=== PATIENT | male | born 1945 | race Caucasian/White ===

== ENCOUNTER 2018-05-15 11:26 | Observation (INO) ==
[2018-05-15] MEDS ORDERED: ONDANSETRON INJ 2 MG/ML 2 ML VIAL IV STA (12:13)
[2018-05-15] MEDS ORDERED: HYDROmorphone INJ 1 MG/ML SYRINGE IV PRN (12:13)
[2018-05-15] MEDS ORDERED: SODIUM CHLORIDE 0.9% 500 ML IV STA (12:13)
[2018-05-15 12:34] LABS: Calcium 9.1 mg/dl (8.5-10.1); Creatinine Clr Calc Pharmacy 65.4 ml/min; Est GFR (African American) 80.5; Est GFR (Non-African American) 69.5; Hematocrit (blood only) 39.5 % (42-52); Immature Granulocytes # (auto) 0.07 K/uL (0.00-0.02); Immature Granulocytes % (auto) 0.7 %; Lymphocytes # (auto) 0.85 K/uL (1.2-3.4); Lymphocytes % (auto) 8.8 %; Mean Corpuscular Hgb Conc 32.9 g/dL (32-36); Mean Platelet Volume 10.8 fL (7.4-10.4); Monocytes % (auto) 12.4 %; Neutrophils # (auto) 7.55 K/uL (1.4-6.5); Neutrophils % (auto) 78.1 %; Platelet Count 219 K/uL (130-400); Potassium 3.2 mmol/L (3.5-5.1); RDW Coefficient of Variation 14.5 % (11.5-14.5); RDW Standard Deviation 45.9 fL (36.4-46.3); Red Blood Count 4.54 M/uL (4.7-6.1); White Blood Count 9.67 K/uL (4.8-10.8)
[2018-05-15] MEDS ORDERED: fentaNYL 50 MCG/HR TDSY TD SCH (14:00)
--- NOTE | 2018-05-15 14:04 | History & Physical Report ---
Date of Service May 15, 2018 Assessment & Plan (1) Uncontrolled pain: This is a 73yo M with a PMH of bladder cancer with mets to pelvis s/p ureteroileal conduit on Hospice who presents with uncontrolled R leg pain x 2 days. -Worsening R leg pain -Discussed pain regimen with palliative care * Will increase Fentanyl patch to 50 mcg * Continue oxycodone 5-10mg but increase frequency from Q4H to Q2H PRN * Family states that patient has already tried Roxanol in the past without alleviation of pain -Continue bowel regimen -Palliative care consulted. Appreciate further recommendations -Family interested in taking patient home once pain control is optimized (2) Bladder cancer: (3) Hospice care: With mets to pelvis. Recently completed palliative radiation therapy at [facility] on 04/28/18 -Receiving Hospice care. Continue Ativan PRN, Anthonyien HS Code status: DNR PCP: Latasha Dispo: Observation med/surg. Discharge planning ordered. Patient seen in collaboration with Dr. Winters. Please see addendum. History of Present Illness Chief Complaint: Uncontrolled pain Primary Care Provider: Hugh Pagan This is a 73yo M with a PMH of bladder cancer with mets to pelvis s/p ureteroileal conduit on Hospice who presents with uncontrolled R leg pain x 2 days. Recently completed palliative radiation therapy this month. Has worsening R buttocks pain that is now extending into right thigh and barnes. Had medication changes made by Hospice team earlier this week. Was started on Fentanyl patches x2 (12mcg each) earlier this week as well as being switched from oxycontin to oxycodone 5-10mg Q4 PRN. Denies any fever, chills, headache, cough, chest pain, shortness of breath, nausea, vomiting, abdominal pain or lower extremity swelling. Leg pain is exacerbated with any type of movement. Pain has improved with 1mg IV dilaudid in ED. Family is at bedside. Allergies Allergy/AdvReac Type Severity Reaction Status Date / Time Cipro Allergy Unknown tendonitis Unverified 07/09/15 13:36 ciprofloxacin Allergy Unknown tendonitis Verified 05/15/18 12:24 midazolam Allergy Unknown depression Verified 05/15/18 12:24 Home Medications Home Medications Medication Instructions Recorded Confirmed Type Gas And Bloat Prevention 1 tab PO DAILY PRN 05/15/18 05/15/18 History brimonidine-timolol [Combigan] 1 drp OPR BID 05/15/18 05/15/18 History fentanyl 1 patch TRANSDERMAL Q72H 05/15/18 05/15/18 History lorazepam [Ativan] 0.5 - 1 mg PO Q8 PRN 05/15/18 05/15/18 History oxycodone 5 - 10 mg PO Q4 PRN 05/15/18 05/15/18 History prednisolone acetate [Pred Forte] 1 drp OPR QPM 05/15/18 05/15/18 History sennosides-docusate sodium 1 tab PO DAILY 05/15/18 05/15/18 History [Senna-S] tramadol 50 - 100 mg PO Q6H PRN 05/15/18 05/15/18 History zolpidem [Ambien] 10 mg PO HS 05/15/18 05/15/18 History Past Med/Surg History Medical History Anxiety (Chronic) Chronic rhinitis (Chronic) GERD (gastroesophageal reflux disease) (Chronic) Hiatal hernia (Chronic) Tinnitus (Chronic) 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 Astigmatism of right eye due to surgery (Resolved) Surgical correction BPH (benign prostatic hyperplasia) (Resolved) Bladder neck contracture (Resolved) Surgery to relieve bladder neck contracture 02/08/14 Surgical History History of urostomy Hx of prostatectomy Hx of total cystectomy History of ileal conduit (Chronic) Radical cystoprostatectomy with ureteroileal conduit 03/12/16 H/O adenoidectomy (Resolved) H/O colonoscopy with polypectomy (Resolved) H/O cystoscopy (Resolved) H/O exploratory laparotomy (Resolved) H/O inguinal hernia repair (Resolved) Left H/O total cystectomy (Resolved) With ureteroileal conduit with bilateral pelvic lymphadenectomy 03/12/16 History of cataract surgery (Resolved) Right eye History of esophagogastroduodenoscopy (EGD) (Resolved) History of tonsillectomy (Resolved) Hx of transurethral destruction of bladder lesion (Resolved) 01/15/16 S/P TURP (Resolved) 09/13/11 Family History Other No significant family history Social History marital status: Current Living Situation: Spouse and Family 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 Other Information That Helps Us Care for You: No Feels Safe at Home: Yes Safety Concerns: Feels Safe At This Time Smoking Status: Never smoker Do You Dip or Chew Tobacco: No Second Hand Exposure: No Tobacco Cessation Education Requested by Patient: No Hx Alcohol Use: No Hx Substance Use: No Beliefs That Will Affect Care: None Preferred Language: Bahraini Communication Ability: Effective Sock Drier Required: No caffeine: Yes (2 liter daily;) during the past year weight has: remained stable Review of Systems All systems reviewed & are unremarkable except as noted in HPI & below Physical Exam 2 Vital Signs (Past 24 Hours): Last Vital Signs Temp 36.3 C L 05/15/18 11:36 Pulse 54 L 05/15/18 13:30 Resp 14 05/15/18 13:30 BP 129/70 05/15/18 13:30 Pulse Ox 93 05/15/18 13:30 Physical Exam: General Appearance: WD/WN, appears chronically ill, resting comfortably Head: normocephalic, atraumatic Eyes: normal inspection, PERRL, EOMI ENT: hearing grossly normal, pharynx normal (moist mucous membranes) Neck: supple, no JVD, no adenopathy Respiratory/Chest: lungs clear to auscultation. No wheezes, rales or rhonci. No respiratory distress or accessory muscle use Cardiovascular: bradycardic, regular rhythm, no murmur, normal peripheral pulses Abdomen/GI: normal bowel sounds, soft, non-tender to palpation. Ostomy in RLQ, no surrounding erythema. : Ureteroileal conduit draining pale yellow urine Extremities/Musculoskelatal: normal inspection, no calf tenderness, normal capillary refill, no pedal edema Neurologic/Psych: alert, normal mood/affect, oriented x 3 Skin: normal color, warm/dry Results & Data Laboratory Results Short CBC 05/15/18 Range/Units 12:05 WBC 9.67 (4.8-10.8) K/uL Hgb 13.0 L (14.0-18.0) g/dL Hct 39.5 L (42-52) % Plt Count 219 (130-400) K/uL [facility] 05/15/18 12:05 Sodium 136 Potassium 3.2 L Chloride 99 Carbon Dioxide 33 H BUN 17 Creatinine 1.07 Glucose 108 H Calcium 9.1 Code Status & VTE Plan Code Status DNR Supervising Physician Co-Signing Physician Notes Attending addendum: Is a 73-year-old male with significant past medical history of CA bladder with metastasis from the hospice care at home was sent in to the emergency room for pain control. He complains to have pain mostly bilateral in the groin and also at the back secondary to metastatic disease from bladder cancer He denies any other symptoms of fever or chills, chest pain and/or palpitation, any nausea and/or vomiting He denies any problem with bowel habit has constipation secondary to narcotics When asking questions he mentions to have some problem with swallowing especially with liquid On examination No apparent distress at rest Pale looking anxious and generally very weak and lethargy Hemodynamically stable Chest-clear to auscultate bilaterally Heart-S1-S2 regular Abdomen-soft, tender in the lower quadrants and also bilateral in the groin Urostomy site is intact and draining urine of normal color Extremities-negative for any edema Admission labs are noted Has metastatic bladder cancer on hospice care Admitted for pain control Increase the dose of fentanyl patch to 50 mcg and increase the frequency of oral oxycodone Palliative care consulted Agree with assessment and plan as outlined above by Maribell Winters _ (1) Bladder cancer Bladder location: unspecified site Qualified Code(s): C67.9 - Malignant neoplasm of bladder, unspecified
[2018-05-15] MEDS ORDERED: [UNRECOGNIZED DRUG - OTHER] PO PRN (14:47)
[2018-05-15] MEDS ORDERED: ONDANSETRON INJ 2 MG/ML 2 ML VIAL IV PRN (14:47)
[2018-05-15] MEDS ORDERED: POLYETHYLENE (MIRALAX) 17 GM PACK PO PRN (14:47)
[2018-05-15] MEDS ORDERED: LORazepam 0.5 MG TAB PO PRN (14:47)
[2018-05-15] MEDS ORDERED: SODIUM CHLORIDE 0.9% 1000ML 1,000 ML IV SCH (15:15)
[2018-05-15] MEDS: CHECK FENTANYL PATCH PLACEMENT SCH (15:27)
[2018-05-15] MEDS: OXYCODONE HCL IR 5 MG TAB (IMMEDIATE RELEASE) PO PRN ×3 (15:57→22:46)
--- NOTE | 2018-05-15 18:08 | Emergency Department Note ---
Entered by Isatu Iyer acting as a scribe for History of Present Illness General Chief complaint: Pain (Generalized) Stated complaint: STAGE 4 CANCER,UNABLE TO CONTROL SEVERE PAIN Time Seen by Provider: 05/15/18 12:05 Source: patient and family History of Present Illness Onset (ago): day(s) (today) Location: abdomen, buttocks and lower extremity Pain Consistency: + other (worsening) Maximum Pain Intensity: 10 Quality: + other (generalized pain) Relieved By: not by medication (Tramadol, Oxycodone, Fentanul patches, Oxycontin ) Associated symptoms: + other (difficulty moving bowels, difficulty swallowing, weight loss); no cough and no fever/chills (fever) The patient is a 73 year old male who presents to the Emergency Room with complaints of worsening generalized pain starting today. The patient states that he has bladder cancer that they have presumed has spread to his bones. He states that he has been receiving radiation as needed. He notes that he did one round of chemotherapy and chose not to do it anymore. He reports that he was started on hospice. He states that he has Tramadol, Oxycodone, Fentanyl patches. He reports that he called his hospice team this morning to find out what to do and they recommended he come to the ED. The patient states that he is ready to go since the pain is too much. He reports that the pain has been in his lower abdomen and buttocks, but has since started to radiate down his legs. The patient complains of difficulty moving his bowels and difficulty swallowing water. He states that he has been taking laxatives and did an enema last night, but it still feels like he is constipated. He notes that when he does try to move his bowels it feels like the pain moves down the back of his legs even more. The patients complains of the patient losing a lot of weight. The patient denies fever and cough. Home Medications Home Medications Medication Instructions Recorded Confirmed Type Gas And Bloat Prevention 1 tab PO DAILY PRN 05/15/18 05/15/18 History brimonidine-timolol [Combigan] 1 drp OPR BID 05/15/18 05/15/18 History fentanyl 1 patch TRANSDERMAL Q72H 05/15/18 05/15/18 History lorazepam [Ativan] 0.5 - 1 mg PO Q8 PRN 05/15/18 05/15/18 History oxycodone 5 - 10 mg PO Q4 PRN 05/15/18 05/15/18 History prednisolone acetate [Pred Forte] 1 drp OPR QPM 05/15/18 05/15/18 History sennosides-docusate sodium 1 tab PO DAILY 05/15/18 05/15/18 History [Senna-S] tramadol 50 - 100 mg PO Q6H PRN 05/15/18 05/15/18 History zolpidem [Ambien] 10 mg PO HS 05/15/18 05/15/18 History Allergies Allergy/AdvReac Type Severity Reaction Status Date / Time Cipro Allergy Unknown tendonitis Unverified 07/09/15 13:36 ciprofloxacin Allergy Unknown tendonitis Verified 05/15/18 12:24 midazolam Allergy Unknown depression Verified 05/15/18 12:24 Past Med/Surg History Medical History Anxiety (Chronic) Chronic rhinitis (Chronic) GERD (gastroesophageal reflux disease) (Chronic) Hiatal hernia (Chronic) Tinnitus (Chronic) 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 Astigmatism of right eye due to surgery (Resolved) Surgical correction BPH (benign prostatic hyperplasia) (Resolved) Bladder neck contracture (Resolved) Surgery to relieve bladder neck contracture 02/08/14 Surgical History History of urostomy Hx of prostatectomy Hx of total cystectomy History of ileal conduit (Chronic) Radical cystoprostatectomy with ureteroileal conduit 03/12/16 H/O adenoidectomy (Resolved) H/O colonoscopy with polypectomy (Resolved) H/O cystoscopy (Resolved) H/O exploratory laparotomy (Resolved) H/O inguinal hernia repair (Resolved) Left H/O total cystectomy (Resolved) With ureteroileal conduit with bilateral pelvic lymphadenectomy 03/12/16 History of cataract surgery (Resolved) Right eye History of esophagogastroduodenoscopy (EGD) (Resolved) History of tonsillectomy (Resolved) Hx of transurethral destruction of bladder lesion (Resolved) 01/15/16 S/P TURP (Resolved) 09/13/11 Family History Other No significant family history Social History marital status: Current Living Situation: Spouse and Family 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 occupational 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: 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 and A total of 10 systems reviewed and were otherwise negative Physical Exam Vital Signs Vital Signs - 24 hr 05/15/18 11:36 05/15/18 12:39 05/15/18 13:00 Temperature 36.3 C L Temperature Source Oral Sepsis Recent Fever Within 48 Hours No Sepsis New/Unexplained Change in Mental Status No Sepsis Action Taken by Nursing No Action Required Pulse Rate 71 54 L 55 L Pulse Rate [Left Finger] Respiratory Rate 16 13 21 Respiratory Effort / Characteristics Non-Labored Spontaneous Respiratory Depth Respiratory Pattern Blood Pressure 134/82 129/75 121/67 Blood Pressure [Left Arm] Blood Pressure Mean 99 93 85 Blood Pressure Mean [Left Arm] Blood Pressure Position [Left Arm] Pulse Oximetry 97 95 91 Oxygen Delivery Method Room Air 05/15/18 13:30 05/15/18 14:00 05/15/18 14:20 Temperature 36.5 C Temperature Source Oral Sepsis Recent Fever Within 48 Hours Sepsis New/Unexplained Change in Mental Status Sepsis Action Taken by Nursing Pulse Rate 54 L Pulse Rate [Left Finger] 62 Respiratory Rate 14 18 Respiratory Effort / Characteristics Non-Labored Spontaneous Respiratory Depth Normal Respiratory Pattern Regular Blood Pressure 129/70 Blood Pressure [Left Arm] 151/84 H Blood Pressure Mean 89 Blood Pressure Mean [Left Arm] 106 Blood Pressure Position [Left Arm] Lying Pulse Oximetry 93 98 Oxygen Delivery Method Room Air Room Air GENERAL: Patient is in no acute distress. HEENT: No acute trauma, normocephalic atraumatic, mucous membranes moist, no nasal congestion, no scleral icterus. NECK: No stridor, no adenopathy, no meningismus, trachea is midline. LUNGS: Clear to auscultation bilaterally, no wheeze, no rhonchi, breath sounds equal. HEART: Without murmurs gallops or rubs, regular rate and rhythm. ABDOMEN: Soft, nontender, bowel sounds positive, no hernias, no peritonitis. Urostomy present. BUTTOCK: No ulcer noted. EXTREMITIES: No cyanosis or edema, full range of motion of all the joints without pain or difficulty, no signs for acute trauma. NEUROLOGIC: Oriented x 3, no acute motor or sensory deficits, no focal weakness. SKIN: No rash, no jaundice, no diaphoresis. Course 1206: Past medical records reviewed. The patient was evaluated in room B9, and a complete history and physical examination were performed. I updated him and his family on the resutls and treatment plan. They verbally agree and understand. 1215: I paged the hospitalist at this time. 1226: I reviewed the patient's case with CESAR Harper Hospitalist. She will evaluate the patient for further management. Consultations Consultation #1: I reviewed the patient's case with CESAR Harper Hospitalist. She will evaluate the patient for further management. Time: 12:26 Administered Medications Sodium Chloride (Nss 1000ml) 1,000 mls @ 80 mls/hr IV .[id number] KEVIN Stop: 05/16/18 03:44 Last Admin: 05/15/18 15:33 Dose: 80 mls/hr Miscellaneous (Fentanyl Patch Check Placement) 1 ea N/A QS KEVIN Stop: 06/14/18 15:59 Last Admin: 05/15/18 15:27 Dose: 1 ea Miscellaneous (Order Awaiting Action) 1 ea N/A QS KEVIN Stop: 06/14/18 15:59 Last Admin: 05/15/18 16:44 Dose: Not Given Oxycodone HCl (Roxicodone Immediate Rel) 10 mg PO Q2H PRN PRN Reason: Breakthrough Pain Stop: 05/29/18 14:46 Last Admin: 05/15/18 18:33 Dose: 10 mg Admin: 05/15/18 15:57 Dose: 10 mg Discontinued Medications Fentanyl (Duragesic) 50 mcg TD Q3D KEVIN Stop: 05/29/18 13:59 Last Admin: 05/15/18 15:08 Dose: 50 mcg Hydromorphone HCl (Dilaudid) 1 mg IV Q15M PRN PRN Reason: Pain Stop: 05/29/18 12:12 Last Admin: 05/15/18 12:33 Dose: 1 mg Sodium Chloride (Nss) 500 mls @ 999 mls/hr IV .Q31M STA Stop: 05/15/18 12:43 Last Infusion: 05/15/18 13:47 Dose: Admin: 05/15/18 12:38 Dose: 999 mls/hr Miscellaneous (Fentanyl Patch Remove & Waste) 1 ea N/A Q3D KEVIN Stop: 06/17/18 13:56 Last Admin: 05/15/18 15:13 Dose: 1 ea Ondansetron HCl (Zofran) 4 mg IV NOW STA Stop: 05/15/18 12:14 Last Admin: 05/15/18 12:33 Dose: 4 mg Medical Decision Making Differential Diagnosis Differential diagnoses include uncontrolled pain, worsening bladder cancer, dehydration, electrolyte imbalance, anemia, infection. Medical Records Attestation: I reviewed the patient's medical records. Home Medications Current Medication List: was personally reviewed by me Laboratory Data Attestation: I reviewed the patient's lab results. Result diagrams: 05/15/18 12:05 05/15/18 12:05 Lab Results 05/15/18 05/15/18 Range/Units 12:05 12:05 WBC 9.67 (4.8-10.8) K/uL RBC 4.54 L (4.7-6.1) M/uL Hgb 13.0 L (14.0-18.0) g/dL Hct 39.5 L (42-52) % MCV 87.0 (80-100) fL MCH 28.6 (25-34) pg MCHC 32.9 (32-36) g/dL RDW Std Deviation 45.9 (36.4-46.3) fL RDW Coeff of Harriet 14.5 (11.5-14.5) % Plt Count 219 (130-400) K/uL MPV 10.8 H (7.4-10.4) fL Immature Gran % (Auto) 0.7 % Neut % (Auto) 78.1 % Lymph % (Auto) 8.8 % Miller % (Auto) 12.4 % Eos % (Auto) 0.0 % Baso % (Auto) 0.0 % Immature Gran # (Auto) 0.07 H (0.00-0.02) K/uL Neut # (Auto) 7.55 H (1.4-6.5) K/uL Lymph # (Auto) 0.85 L (1.2-3.4) K/uL Miller # (Auto) 1.20 H (0.11-0.59) K/uL Eos # (Auto) 0.00 (0-0.5) K/uL Baso # (Auto) 0.00 (0-0.2) K/uL Sodium 136 (136-145) mmol/L Potassium 3.2 L (3.5-5.1) mmol/L Chloride 99 (98-107) mmol/L Carbon Dioxide 33 H (21-32) mmol/L Anion Gap 4.0 (3-11) BUN 17 (7-18) mg/dl Creatinine 1.07 (0.6-1.4) mg/dl Est Cr Clr Drug Dosing 65.4 ml/min Est GFR ( Amer) 80.5 Est GFR (Non-Af Amer) 69.5 BUN/Creatinine Ratio 16.0 (10-20) Glucose 108 H (70-99) mg/dl Calcium 9.1 (8.5-10.1) mg/dl MDM Narrative There is no leukocytosis or worrisome anemia. No significant electrolyte abnormality or kidney failure. On exam, his lungs are clear. He was not toxic or febrile. He complained of pain in the buttock and down the right leg. He has metastatic bladder cancer. The patient had been sent in by the hospice team. His pain was not being controlled as an outpatient. I did speak to the patient and case management. The patient did receive IV Dilaudid here for pain control. He received IV Zofran. He received IV saline. This medication has helped his symptoms. The on-call hospitalist was consulted. Hospitalization is warranted to control the pain from his cancer. Impression & Plan Uncontrolled pain, Bladder cancer, Hospice care Discharge Plan Visit Data *Final* Discharge Date/Time: 05/15/18 13:52 Chief Complaint: Pain (Generalized) Stated Complaint: STAGE 4 CANCER,UNABLE TO CONTROL SEVERE PAIN ED Provider: Rojas Lopez Discharge Problem: Uncontrolled pain, Bladder cancer, Hospice care Patient Disposition: Admitted As Inpatient Discharge Instructions Interventions: ED Discharge Assessment Last Done: 05/15/18 13:52 The calvinibe's documentation has been prepared under my direction and personally reviewed by me in its entirety. I confirm that the note above accurately reflects all work, treatment, procedures, and medical decision making performed by me.
[2018-05-15] MEDS: HYDROmorphone INJ 0.5 MG/0.5 ML SYR IV PRN (20:22)
[2018-05-15] MEDS ORDERED: prednisoLONE acetate 1% OP SUSP 5 ML BTL OPR SCH (21:00)
[2018-05-15] MEDS: ZOLPIDEM TARTRATE 10 MG TAB PO SCH ×2 (21:45→22:47)
[2018-05-16] MEDS: CHECK FENTANYL PATCH PLACEMENT SCH ×2 (00:34→08:07)
[2018-05-16] MEDS: OXYCODONE HCL IR 5 MG TAB (IMMEDIATE RELEASE) PO PRN ×3 (03:20→10:27)
[2018-05-16 08:11] VITALS: BP 123/63; PULSE 54; TEMP 97.7; O2SAT 94
[2018-05-16] MEDS ORDERED: DOCUSATE SODIUM/SENNA 50/8.6MG TAB PO SCH (09:00)
[2018-05-16] MEDS: HYDROmorphone INJ 0.5 MG/0.5 ML SYR IV PRN (09:01)
--- NOTE | 2018-05-16 09:42 | Discharge Summary ---
Date of Service May 16, 2018 Admission HPI Per Admitting Provider This is a 73yo M with a PMH of bladder cancer with mets to pelvis s/p ureteroileal conduit on Hospice who presents with uncontrolled R leg pain x 2 days. Recently completed palliative radiation therapy this month. Has worsening R buttocks pain that is now extending into right thigh and barnes. Had medication changes made by Hospice team earlier this week. Was started on Fentanyl patches x2 (12mcg each) earlier this week as well as being switched from oxycontin to oxycodone 5-10mg Q4 PRN. Denies any fever, chills, headache, cough, chest pain, shortness of breath, nausea, vomiting, abdominal pain or lower extremity swelling. Leg pain is exacerbated with any type of movement. Pain has improved with 1mg IV dilaudid in ED. Family is at bedside. Admission Exam Per Admitting Provider General Appearance: WD/WN, appears chronically ill, resting comfortably Head: normocephalic, atraumatic Eyes: normal inspection, PERRL, EOMI ENT: hearing grossly normal, pharynx normal (moist mucous membranes) Neck: supple, no JVD, no adenopathy Respiratory/Chest: lungs clear to auscultation. No wheezes, rales or rhonci. No respiratory distress or accessory muscle use Cardiovascular: bradycardic, regular rhythm, no murmur, normal peripheral pulses Abdomen/GI: normal bowel sounds, soft, non-tender to palpation. Ostomy in RLQ, no surrounding erythema. : Ureteroileal conduit draining pale yellow urine Extremities/Musculoskelatal: normal inspection, no calf tenderness, normal capillary refill, no pedal edema Neurologic/Psych: alert, normal mood/affect, oriented x 3 Skin: normal color, warm/dry Principal Diagnosis Severe cancer pain Bladder cancer with pelvic metastases Discharge Exam ROS-No Headache, No Visual Changes, No Nausea, No Vomiting, No Fever, No Chills , No Neck Pain or Stiffness, No Chest Pain, No Palpitations, No SOB, No ZEPEDA, No Cough, No Sputum, No Wheezing, No Abdominal Pain, No Diarrhea, No Hematemesis, No Hemoptysis, No Unexpected Weight Loss, No Flank pain, No Melena, No Hematochezia, No Frequency, No Urgency, No Burning, No Hematuria, No Rashes, No Diaphoresis. Appetite is Normal, planes of pelvic pain Physical Exam Gen-AAO x 3, NAD, Afebrile, pleasant Head-NCAT, EOMI, PERRLA, Anicteric Sclera, No Posterior Pharyngeal Erythema Neck-Supple, No JVD, No Thyromegaly, No Masses, No LAD, No Bruits Lungs-Clear to Auscultation Bilaterally, No Rales, No Rhonchi, No Wheezing, No Crepitus Chest-No S4, +S1, +S2, No S3, No Murmurs, No Rubs, No Gallops, No Ectopy Abdomen-Soft, Bowel Sounds Present, Tender, Non Distended, No Hepatomegaly, No Splenomegaly, No Palpable Masses, No Rebound, No Rigidity, No Guarding Musculoskeletal-Full Range of Motion Bilaterally, No CVAT Extremities-No Cyanosis, No Clubbing, No Edema Nuero-Cranial Nerves II-XII grossly intact, Motor WNL, DTRs WNL, Strength WNL, Non Focal Psych-Normal Mood Discharge Data Allergies Allergy/AdvReac Type Severity Reaction Status Date / Time Cipro Allergy Unknown tendonitis Unverified 07/09/15 13:36 ciprofloxacin Allergy Unknown tendonitis Verified 05/15/18 12:24 midazolam Allergy Unknown depression Verified 05/15/18 12:24 Consultations 05/15/18 12:29 ED Decision to Admit Stat 05/15/18 14:47 Consult Case Management - Discharge Planning Routine Consult Palliative Care Routine Current Diagnoses Malignant neoplasm of bladder, unspecified (05/15/18) Pain, unspecified (05/15/18) Encounter for palliative care (05/15/18) Allergies Cipro Allergy (Unknown, Unverified 07/09/15 13:36) tendonitis ciprofloxacin Allergy (Unknown, Verified 05/15/18 12:24) tendonitis midazolam Allergy (Unknown, Verified 05/15/18 12:24) depression Height/Weight/Isolation Height 5 ft 10 in Weight 74.1 kg Chemistry 05/15/18 12:05 Sodium 136 Potassium 3.2 L Chloride 99 Carbon Dioxide 33 H Anion Gap 4.0 BUN 17 Creatinine 1.07 Glucose 108 H Hospital Course (1) Uncontrolled pain: This is a 73yo M with a PMH of bladder cancer with mets to pelvis s/p ureteroileal conduit on Hospice who presents with uncontrolled R leg pain x 2 days. -Worsening R leg pain DC home today * Fentanyl patch to 50 mcg * Oxycodone 10mg Q3 -Continue bowel regimen -Palliative care consulted. DC later today -Family interested in taking patient home once pain control is optimized (2) Bladder cancer: (3) Hospice care: With mets to pelvis. Recently completed palliative radiation therapy at [facility] on 04/28/18 -Receiving Hospice care. Continue Ativan PRN, Ambien HS Code status: DNR PCP: Latasha Dispo: Discharge home today with hospice Total Time Total Time Spent Total Time Spent (In Minutes): 45 minutes Total Time Includes: Examination of the Patient, Discharge Planning, Medication Reconciliation and Communication With Other Providers Discharge Plan Discharge Items Patient Disposition: Hospice - Home Reason For Visit: PAIN CONTROL, ON HOSPICE Discharge Diagnosis: Severe cancer related pain Bladder cancer Pelvic metastases Discharge Goals: Decrease discomfort Activity: Resume your previous activity Lifting: None Bathing: No limitations Sexual Activity: When tolerated Exercise/Sports: None Driving/Machine Use: No limitations Weightbearing: Left weightbearing and Right weightbearing Non-emergency contact: Primary Care Provider and Oncologist Call non-emergency contact if: you have any medication questions and your symptoms worsen Follow-up/Referrals: Cony Macias MD [Physician] - Hugh Pagan [Primary Care Provider] - Diet: Regular Addtl Provider Instructions: Comfort care Prescriptions: New oxycodone 5 mg Tablet 10 mg PO Q3H PRN (Reason: pain) Qty: 60 RF: 0 fentanyl 50 mcg/hr Patch 72 Hour 50 mcg Transdermal Q3D@1500 Qty: 10 RF: 0 Continue sennosides-docusate sodium [Senna-S] 8.6-50 mg Tablet 1 tab PO DAILY RF: 0 tramadol 50 mg Tablet 50 - 100 mg PO Q6H PRN (Reason: Breakthrough Pain) RF: 0 prednisolone acetate [Pred Forte] 1 % Drops,Suspension 1 drp OPR QPM RF: 0 lorazepam [Ativan] 0.5 mg Tablet 0.5 - 1 mg PO Q8 PRN (Reason: Anxiety) RF: 0 zolpidem [Ambien] 10 mg Tablet 10 mg PO HS RF: 0 brimonidine-timolol [Combigan] 0.2-0.5 % Drops 1 drp OPR BID RF: 0 Gas And Bloat Prevention 1 tab PO DAILY PRN (Reason: gas and bloat) RF: 0 fentanyl 12 mcg/hr Patch 72 Hour 1 patch TRANSDERMAL Q72H RF: 0 Discontinued oxycodone 5 mg Tablet 5 - 10 mg PO Q4 PRN (Reason: Breakthrough Pain) RF: 0 Stand-Alone Forms: [facility] Discharge Orders: Discharge Order (Routine); Ordered 05/16/18 Ordered By: José Clement Admission Data Admit Date/Time: 05/15/18 13:34 Attending Provider: José Clement Admit Provider: José Clement Primary Care Provider: Hugh Pagan Other Providers: Malgorzata Winters ; Cony Macias Service: Medical
[2018-05-18] MEDS ORDERED: fentaNYL 50 MCG/HR TDSY TD SCH (15:00)
== END 2018-05-16 11:26 | disposition hospice, home (50) ==
LOC: ED 11:26 → 4E 11:26

== ENCOUNTER 2018-05-16 17:21 | Inpatient (IN) ==
[2018-05-16] MEDS ORDERED: ONDANSETRON INJ 2 MG/ML 2 ML VIAL IV STA (18:11)
[2018-05-16] MEDS ORDERED: HYDROmorphone INJ 1 MG/ML SYRINGE IV STA ×2 (18:11→22:53)
[2018-05-16] MEDS ORDERED: SODIUM CHLORIDE 0.9% 1000ML 1,000 ML IV SCH ×2 (18:15→22:30)
--- NOTE | 2018-05-16 18:20 | Emergency Department Note ---
Entered by Sarika Dsouza acting as a scribe for History of Present Illness General Chief complaint: Pain (Generalized) Stated complaint: PAIN- ENDSTAGE CANCER Time Seen by Provider: 05/16/18 18:06 History of Present Illness Maximum Pain Intensity: 10 The patient is a 73 year old male who presents to the Emergency Room with complaints of [] terminal cancer; bone cancer; discharged earlier this afternoon; couldnt take pain; no falls since got home ; normal pain meds not working; called hospice they told them to come in; patches for fentanyl; oxycodone; went home and had tramadol; given something through port in hospital; gneralized pain; 01/04; Home Medications Home Medications Medication Instructions Recorded Confirmed Type Gas And Bloat Prevention 1 tab PO DAILY PRN 05/15/18 05/15/18 History brimonidine-timolol [Combigan] 1 drp OPR BID 05/15/18 05/15/18 History fentanyl 1 patch TRANSDERMAL Q72H 05/15/18 05/15/18 History lorazepam [Ativan] 0.5 - 1 mg PO Q8 PRN 05/15/18 05/15/18 History prednisolone acetate [Pred Forte] 1 drp OPR QPM 05/15/18 05/15/18 History sennosides-docusate sodium 1 tab PO DAILY 05/15/18 05/15/18 History [Senna-S] tramadol 50 - 100 mg PO Q6H PRN 05/15/18 05/15/18 History zolpidem [Ambien] 10 mg PO HS 05/15/18 05/15/18 History fentanyl 50 mcg TRANSDERMAL Q3D@1500 #10 ea 05/16/18 Rx oxycodone 10 mg PO Q4H PRN #60 tab 05/16/18 Rx Allergies Allergy/AdvReac Type Severity Reaction Status Date / Time Cipro Allergy Unknown tendonitis Unverified 07/09/15 13:36 ciprofloxacin Allergy Unknown tendonitis Verified 05/15/18 12:24 midazolam Allergy Unknown depression Verified 05/15/18 12:24 Past Med/Surg History Medical History Anxiety (Chronic) Chronic rhinitis (Chronic) GERD (gastroesophageal reflux disease) (Chronic) Hiatal hernia (Chronic) Tinnitus (Chronic) 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 Astigmatism of right eye due to surgery (Resolved) Surgical correction BPH (benign prostatic hyperplasia) (Resolved) Bladder neck contracture (Resolved) Surgery to relieve bladder neck contracture 02/08/14 Surgical History History of ileal conduit (Chronic) Radical cystoprostatectomy with ureteroileal conduit 03/12/16 H/O adenoidectomy (Resolved) H/O colonoscopy with polypectomy (Resolved) H/O cystoscopy (Resolved) H/O exploratory laparotomy (Resolved) H/O inguinal hernia repair (Resolved) Left H/O total cystectomy (Resolved) With ureteroileal conduit with bilateral pelvic lymphadenectomy 03/12/16 History of cataract surgery (Resolved) Right eye History of esophagogastroduodenoscopy (EGD) (Resolved) History of tonsillectomy (Resolved) Hx of transurethral destruction of bladder lesion (Resolved) 01/15/16 S/P TURP (Resolved) 09/13/11 History of urostomy Hx of prostatectomy Hx of total cystectomy Family History Other No significant family history Social History marital status: Current Living Situation: Spouse and Family 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 Feels Safe at Home: Yes Smoking Status: Never smoker Second Hand Exposure: No Hx Alcohol Use: No Hx Substance Use: No Beliefs That Will Affect Care: None Preferred Language: Egyptian caffeine: Yes (2 liter daily;) during the past year weight has: remained stable Physical Exam Vital Signs Vital Signs - 24 hr 05/16/18 17:34 Temperature 97.5 F L Temperature Source Oral Sepsis Recent Fever Within 48 Hours No Sepsis New/Unexplained Change in Mental Status No Sepsis Action Taken by Nursing No Action Required Pulse Rate 64 Pulse Rhythm Regular Pulse Strength Normal Respiratory Rate 22 Respiratory Effort / Characteristics Non-Labored Spontaneous Respiratory Depth Normal Respiratory Pattern Regular Blood Pressure 140/72 Blood Pressure Mean 94 Blood Pressure Position Sitting Pulse Oximetry 95 Oxygen Delivery Method Room Air Discharge Plan Visit Data Chief Complaint: Pain (Generalized) Stated Complaint: PAIN- ENDSTAGE CANCER ED Provider: Guille Mckeon Prescriptions Prescriptions: No Action sennosides-docusate sodium [Senna-S] 8.6-50 mg Tablet 1 tab PO DAILY RF: 0 tramadol 50 mg Tablet 50 - 100 mg PO Q6H PRN (Reason: Breakthrough Pain) RF: 0 prednisolone acetate [Pred Forte] 1 % Drops,Suspension 1 drp OPR QPM RF: 0 lorazepam [Ativan] 0.5 mg Tablet 0.5 - 1 mg PO Q8 PRN (Reason: Anxiety) RF: 0 zolpidem [Ambien] 10 mg Tablet 10 mg PO HS RF: 0 brimonidine-timolol [Combigan] 0.2-0.5 % Drops 1 drp OPR BID RF: 0 Gas And Bloat Prevention 1 tab PO DAILY PRN (Reason: gas and bloat) RF: 0 fentanyl 12 mcg/hr Patch 72 Hour 1 patch TRANSDERMAL Q72H RF: 0 fentanyl 50 mcg/hr Patch 72 Hour 50 mcg Transdermal Q3D@1500 Qty: 10 RF: 0 oxycodone 10 mg tablet 10 mg PO Q4H PRN (Reason: pain) Qty: 60 RF: 0
--- NOTE | 2018-05-16 19:35 | Emergency Department Note ---
Entered by Isabel Newby acting as a scribe for Guille Mckeon DO History of Present Illness General Chief complaint: Pain (Generalized) Stated complaint: PAIN- ENDSTAGE CANCER Time Seen by Provider: 05/16/18 18:06 Source: patient and family History of Present Illness Provider complaint: generalized pain Onset (ago): day(s) (today) Location: left and right Maximum Pain Intensity: 10 Quality: + other (generalized pain) Relieved By: + none The patient is a 73 year old male who presents to the Emergency Room with complaints of generalized pain today. He rates his pain at a 10/10. 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 He states that his cancer has spread to his pelvic area. He states that he was diagnosed with bladder cancer about 3 years ago and had his bladder removed. Per family, the patient also had his prostate removed. His family states that the cancer has spread to his bones. He denies having any fevers or vomiting. The patient states that he was going to meet with hospice. Per family, the patient has had oxycodone, tramadol , ativan, a Fentanyl patch, and morphine. He states that nothing has helped to alleviate his pain. Home Medications Home Medications Medication Instructions Recorded Confirmed Type Gas And Bloat Prevention 1 tab PO DAILY PRN 05/15/18 05/16/18 History brimonidine-timolol [Combigan] 1 drp OPR BID 05/15/18 05/16/18 History lorazepam [Ativan] 0.5 - 1 mg PO Q8 PRN 05/15/18 05/16/18 History prednisolone acetate [Pred Forte] 1 drp OPR QPM 05/15/18 05/16/18 History sennosides-docusate sodium 1 tab PO DAILY 05/15/18 05/16/18 History [Senna-S] tramadol 50 - 100 mg PO Q6H PRN 05/15/18 05/16/18 History zolpidem [Ambien] 10 mg PO HS 05/15/18 05/16/18 History Morphine Susp 1 dose PO UD PRN 05/16/18 05/16/18 History fentanyl 50 mcg TRANSDERMAL Q3D@1500 #10 ea 05/16/18 05/16/18 Rx oxycodone 10 mg PO Q4H PRN #60 tab 05/16/18 05/16/18 Rx simethicone [Gas Relief] 0 mg PO BID PRN 05/16/18 05/16/18 History Allergies Allergy/AdvReac Type Severity Reaction Status Date / Time Cipro Allergy Unknown tendonitis Unverified 07/09/15 13:36 ciprofloxacin Allergy Unknown tendonitis Verified 05/15/18 12:24 midazolam Allergy Unknown depression Verified 05/15/18 12:24 Past Med/Surg History Medical History Anxiety (Chronic) Chronic rhinitis (Chronic) GERD (gastroesophageal reflux disease) (Chronic) Hiatal hernia (Chronic) Tinnitus (Chronic) 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 Astigmatism of right eye due to surgery (Resolved) Surgical correction BPH (benign prostatic hyperplasia) (Resolved) Bladder neck contracture (Resolved) Surgery to relieve bladder neck contracture 02/08/14 Surgical History History of ileal conduit (Chronic) Radical cystoprostatectomy with ureteroileal conduit 03/12/16 H/O adenoidectomy (Resolved) H/O colonoscopy with polypectomy (Resolved) H/O cystoscopy (Resolved) H/O exploratory laparotomy (Resolved) H/O inguinal hernia repair (Resolved) Left H/O total cystectomy (Resolved) With ureteroileal conduit with bilateral pelvic lymphadenectomy 03/12/16 History of cataract surgery (Resolved) Right eye History of esophagogastroduodenoscopy (EGD) (Resolved) History of tonsillectomy (Resolved) Hx of transurethral destruction of bladder lesion (Resolved) 01/15/16 S/P TURP (Resolved) 09/13/11 History of urostomy Hx of prostatectomy Hx of total cystectomy Family History Other No significant family history Social History marital status: Current Living Situation: Spouse and Family 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 and A total of 10 systems reviewed and were otherwise negative Physical Exam Vital Signs Vital Signs - 24 hr 05/16/18 17:34 05/16/18 20:19 05/16/18 20:54 Temperature 36.4 C L Temperature Source Oral Sepsis Recent Fever Within 48 Hours No Sepsis New/Unexplained Change in Mental Status No Sepsis Action Taken by Nursing No Action Required Pulse Rate 64 Pulse Rate [Right] 86 76 Pulse Rhythm Regular Pulse Rhythm [Right] Regular Regular Pulse Strength Normal Pulse Strength [Right] Normal Normal Respiratory Rate 22 20 16 Respiratory Effort / Characteristics Non-Labored Spontaneous Non-Labored Respiratory Depth Normal Normal Normal Respiratory Pattern Regular Regular Blood Pressure 140/72 Blood Pressure [Right Arm] 153/74 H 135/76 Blood Pressure Mean 94 Blood Pressure Mean [Right Arm] 100 95 Blood Pressure Position Sitting Blood Pressure Position [Right Arm] Lying Lying Pulse Oximetry 95 95 94 Oxygen Delivery Method Room Air Room Air Room Air 05/16/18 23:00 Temperature 36.9 C Temperature Source Oral Sepsis Recent Fever Within 48 Hours Sepsis New/Unexplained Change in Mental Status Sepsis Action Taken by Nursing Pulse Rate Pulse Rate [Right] 60 Pulse Rhythm Pulse Rhythm [Right] Regular Pulse Strength Pulse Strength [Right] Normal Respiratory Rate 16 Respiratory Effort / Characteristics Non-Labored Spontaneous Respiratory Depth Normal Respiratory Pattern Regular Blood Pressure Blood Pressure [Right Arm] 149/80 H Blood Pressure Mean Blood Pressure Mean [Right Arm] 103 Blood Pressure Position Blood Pressure Position [Right Arm] Lying Pulse Oximetry 97 Oxygen Delivery Method Room Air GENERAL: Patient is awake and alert. He is very anxious and appears to be in significant pain. EYES: The conjunctivae are clear. The pupils are round and reactive. EARS, NOSE, MOUTH AND THROAT: The nose is without any evidence of any deformity. Mucous membranes are moist tongue is midline NECK: The neck is nontender and supple. RESPIRATORY: Normal respiratory effort is noted there is no evidence of wheezing rhonchi or rales CARDIOVASCULAR: Regular rate and rhythm noted there no murmurs rubs or gallops normal S1 normal S2 GASTROINTESTINAL: The abdomen is mildly distended but soft. There is diffuse tenderness to palpation but no guarding or rigidity. MUSCULOSKELETAL/EXTREMITIES: There is tenderness over both hips as well as the anterior part of the pelvis. SKIN: There is no obvious evidence of any rash. There is pedal edema bilaterally. NEUROLOGIC: Patient is awake alert and oriented x3. Course 1810: Past medical records reviewed. The patient was evaluated in room C5, and a complete history and physical examination were performed. 1930: I updated the patient and his family who verbalized agreement and understanding of the treatment plan. 1937: I discussed the patient's case with Dr. Alvarado who will evaluate the patient for further management. Consultations Consultation #1: Dr. Alvarado Time: 19:38 Administered Medications Hydromorphone HCl (Dilaudid) 1 mg IV Q30M PRN PRN Reason: Pain Stop: 05/30/18 22:52 Last Admin: 05/17/18 08:07 Dose: 1 mg Admin: 05/17/18 02:12 Dose: 1 mg Admin: 05/17/18 01:35 Dose: 1 mg Admin: 05/17/18 00:47 Dose: 1 mg Admin: 05/17/18 00:14 Dose: 1 mg Lorazepam (Ativan) 0.25 mg in 0.5 mls @ 0.5 mls/min IV Q1H PRN PRN Reason: Anxiety/Agitation Stop: 06/15/18 22:52 Last Admin: 05/17/18 09:07 Dose: 0.5 mls/min Admin: 05/17/18 00:47 Dose: 0.5 mls/min Lidocaine (Lidoderm 5%) 1 patch TD QAM KEVIN Stop: 06/16/18 04:29 Last Admin: 05/17/18 05:37 Dose: Not Given Miscellaneous (Order Awaiting Action) 1 ea N/A QS KEVIN Stop: 06/16/18 00:00 Last Admin: 05/17/18 07:54 Dose: Not Given Admin: 05/16/18 23:47 Dose: Not Given Miscellaneous (Fentanyl Patch Check Placement) 1 ea N/A QS KEVIN Stop: 06/16/18 00:00 Last Admin: 05/17/18 07:53 Dose: 1 ea Admin: 05/16/18 23:48 Dose: 1 ea Miscellaneous (Fentanyl Patch Check Placement) 1 ea N/A QS KEVIN Stop: 06/16/18 00:00 Last Admin: 05/17/18 07:54 Dose: 1 ea Admin: 05/16/18 23:48 Dose: 1 ea Oxycodone/Acetaminophen (Percocet 10/325mg) 1 tab PO Q4H PRN PRN Reason: Pain Stop: 05/30/18 22:52 Last Admin: 05/17/18 00:15 Dose: 1 tab Senna/Docusate Sodium (Senokot S) 1 tab PO DAILY KEVIN Stop: 06/16/18 08:59 Last Admin: 05/17/18 08:08 Dose: 1 tab Discontinued Medications Fentanyl (Duragesic) 12 mcg TD TODAY@2330 KEVIN Stop: 05/16/18 23:31 Last Admin: 05/16/18 23:42 Dose: 12 mcg Heparin Sodium (Porcine) (Heparin Sod 100 Unit/Ml Flush) Confirm Administered Dose 5 ml .ROUTE .STBig Stage-MED ONE Stop: 05/17/18 08:07 Last Admin: 05/17/18 08:09 Dose: 5 ml Hydromorphone HCl (Dilaudid) 1 mg IV NOW STA Stop: 05/16/18 18:12 Last Admin: 05/16/18 18:43 Dose: 1 mg Hydromorphone HCl (Dilaudid) 0.5 mg IV Q15M PRN PRN Reason: Pain Stop: 05/30/18 18:23 Last Admin: 05/16/18 21:55 Dose: 0.5 mg Admin: 05/16/18 21:32 Dose: 0.5 mg Admin: 05/16/18 21:13 Dose: 0.5 mg Admin: 05/16/18 20:54 Dose: 0.5 mg Admin: 05/16/18 19:46 Dose: 1 mg Hydromorphone HCl (Dilaudid) 1 mg IV NOW STA Stop: 05/16/18 22:54 Last Admin: 05/16/18 23:45 Dose: 1 mg Sodium Chloride (Nss 1000ml) 1,000 mls @ 125 mls/hr IV .Q8H KEVIN Stop: 06/15/18 18:14 Last Infusion: 05/17/18 00:32 Dose: 0 mls/hr Admin: 05/16/18 18:43 Dose: 125 mls/hr Sodium Chloride (Nss 1000ml) 1,000 mls @ 15 mls/hr IV .Q24H KEVIN Stop: 05/30/18 22:23 Last Admin: 05/16/18 23:49 Dose: Not Given Ondansetron HCl (Zofran) 4 mg IV NOW STA Stop: 05/16/18 18:12 Last Admin: 05/16/18 21:13 Dose: Not Given Medical Decision Making Differential Diagnosis Differentials include pathologic fracture, cancer pain, medication tolerance, and under-medication. Medical Records Attestation: I reviewed the patient's medical records. Home Medications Current Medication List: was personally reviewed by me Laboratory Data Attestation: I reviewed the patient's lab results. Blood Pressure Blood Pressure Findings: Normal blood pressure MDM Narrative The patient is a 73-year-old male who presented to the emergency department for an evaluation of pain. The patient is a history of metastatic bladder cancer and is in severe pain. He was in our facility and admitted for pain control but is not doing well at home. He was placed on hospice but his pain management was still not at an appropriate level. The patient was treated with IV Dilaudid in the emergency department. He still had very severe pain. I discussed his case with the [facility]. They have agreed to evaluate the patient in the emergency department for further management and disposition. Impression & Plan Intractable pain, Bladder cancer metastasized to bone Discharge Plan Visit Data *Final* Discharge Date/Time: 05/16/18 22:37 Chief Complaint: Pain (Generalized) Stated Complaint: PAIN- ENDSTAGE CANCER ED Provider: Guille Mckeon Discharge Problem: Intractable pain, Bladder cancer metastasized to bone Patient Disposition: Admitted As Inpatient Discharge Instructions Interventions: ED Discharge Assessment Last Done: 05/16/18 22:37 The scribe's documentation has been prepared under my direction and personally reviewed by me in its entirety. I confirm that the note above accurately reflects all work, treatment, procedures, and medical decision making performed by me.
[2018-05-16] MEDS: HYDROmorphone INJ 0.5 MG/0.5 ML SYR IV PRN ×5 (19:46→21:55)
--- NOTE | 2018-05-16 22:16 | History & Physical Report ---
Date of Service May 16, 2018 Assessment & Plan (1) Cancer-related pain: recurrent bladder cancer with bone metastases status post surgery and chemoradiation Uncontrolled symptoms at home OBS GMF Increase Fentanyl patch dose Percocet, Dilaudid as needed Palliative care consult Comfort measures Social service RE discharge planning (Patient/family requesting for home hospice services with IV analgesia capability.) DNR History of Present Illness Chief Complaint: Uncontrolled pain Primary Care Provider: Hugh Pagan History obtained from patient, family, and records. Medical history significant for recurrent bladder cancer with bone metastases status post surgery and chemoradiation, chronic pain on Fentanyl patch, BPH, hyperlipidemia as per records, chronic anemia (baseline hemoglobin 12). Recent confinement 05/16-05/16 for worsening right buttock pain. Patient's Fentanyl patch dose increased from 25-50 mcg every 72 hours. Patient discharge yesterday on home hospice. Uncontrolled pelvic pain at home. Good bowel movement. Home hospice nurse unable to give IV analgesics which was not the patient/ family understanding. Patient brought to the emergency room by family. 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 Allergies Allergy/AdvReac Type Severity Reaction Status Date / Time Cipro Allergy Unknown tendonitis Unverified 07/09/15 13:36 ciprofloxacin Allergy Unknown tendonitis Verified 05/15/18 12:24 midazolam Allergy Unknown depression Verified 05/15/18 12:24 Home Medications Home Medications Medication Instructions Recorded Confirmed Type Gas And Bloat Prevention 1 tab PO DAILY PRN 05/15/18 05/16/18 History brimonidine-timolol [Combigan] 1 drp OPR BID 05/15/18 05/16/18 History lorazepam [Ativan] 0.5 - 1 mg PO Q8 PRN 05/15/18 05/16/18 History prednisolone acetate [Pred Forte] 1 drp OPR QPM 05/15/18 05/16/18 History sennosides-docusate sodium 1 tab PO DAILY 05/15/18 05/16/18 History [Senna-S] tramadol 50 - 100 mg PO Q6H PRN 05/15/18 05/16/18 History zolpidem [Ambien] 10 mg PO HS 05/15/18 05/16/18 History Morphine Susp 1 dose PO UD PRN 05/16/18 05/16/18 History fentanyl 50 mcg TRANSDERMAL Q3D@1500 #10 ea 05/16/18 05/16/18 Rx oxycodone 10 mg PO Q4H PRN #60 tab 05/16/18 05/16/18 Rx simethicone [Gas Relief] 0 mg PO BID PRN 05/16/18 05/16/18 History Past Med/Surg History Medical History Anxiety (Chronic) Chronic rhinitis (Chronic) GERD (gastroesophageal reflux disease) (Chronic) Hiatal hernia (Chronic) Tinnitus (Chronic) 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 Astigmatism of right eye due to surgery (Resolved) Surgical correction BPH (benign prostatic hyperplasia) (Resolved) Bladder neck contracture (Resolved) Surgery to relieve bladder neck contracture 02/08/14 Surgical History History of ileal conduit (Chronic) Radical cystoprostatectomy with ureteroileal conduit 03/12/16 H/O adenoidectomy (Resolved) H/O colonoscopy with polypectomy (Resolved) H/O cystoscopy (Resolved) H/O exploratory laparotomy (Resolved) H/O inguinal hernia repair (Resolved) Left H/O total cystectomy (Resolved) With ureteroileal conduit with bilateral pelvic lymphadenectomy 03/12/16 History of cataract surgery (Resolved) Right eye History of esophagogastroduodenoscopy (EGD) (Resolved) History of tonsillectomy (Resolved) Hx of transurethral destruction of bladder lesion (Resolved) 01/15/16 S/P TURP (Resolved) 09/13/11 History of urostomy Hx of prostatectomy Hx of total cystectomy Family History Other No significant family history Social History marital status: Current Living Situation: Spouse and Family current occupational status: retired 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 Other Information That Helps Us Care for You: No Feels Safe at Home: Yes Safety Concerns: Feels Safe At This Time Smoking Status: Never smoker Do You Dip or Chew Tobacco: No Second Hand Exposure: No Tobacco Cessation Education Requested by Patient: No Hx Alcohol Use: No Hx Substance Use: No Beliefs That Will Affect Care: None Communication Ability: Impaired caffeine: Yes (2 liter daily;) during the past year weight has: remained stable Review of Systems As per HPI, all 10 systems reviewed, all other ROS negative Physical Exam 2 Vital Signs (Past 24 Hours): Last Vital Signs Temp 36.4 C L 05/16/18 17:34 Pulse 76 05/16/18 20:54 Resp 16 05/16/18 20:54 BP 135/76 05/16/18 20:54 Pulse Ox 94 05/16/18 20:54 Physical Exam: GENERAL: Pleasant, uncomfortable, slightly hard of hearing, no respiratory distress SKIN: pallor, warm HEENT: Pale palpebral conjunctivae, no ptosis, dry buccal mucosa NECK : Supple, no tenderness CHEST : CTA, no tenderness HEART : RRR, no obvious murmurs ABDOMEN: Some distention, right lower quadrant ostomy noted, hypogastric tenderness EXTREMITIES : No LE swelling/tenderness, no other conspicuous deformities noted NEUROLOGIC : Coherent, no facial asymmetry, no other gross focality
[2018-05-16] MEDS ORDERED: NALOXONE HCL 0.4 MG/1 ML VIAL/CARP IV PRN (22:22)
[2018-05-16] MEDS ORDERED: HYDROmorphone INJ 1 MG/ML SYRINGE IV PRN (22:22)
[2018-05-16] MEDS ORDERED: ACETAMINOPHEN 325 MG TAB PO PRN (22:26)
[2018-05-16] MEDS ORDERED: fentaNYL 50 MCG/HR TDSY TD SCH (22:53)
[2018-05-16] MEDS ORDERED: fentaNYL 12 MCG/HR TDSY TD SCH (23:30)
[2018-05-16] MEDS: COMBIGAN~ORDER AWAITING ACTION SCH (23:47)
[2018-05-16] MEDS: CHECK FENTANYL PATCH PLACEMENT SCH ×2 (23:48)
[2018-05-17] MEDS ORDERED: CHECK FENTANYL PATCH PLACEMENT SCH
[2018-05-17] MEDS: HYDROmorphone INJ 1 MG/ML SYRINGE IV PRN ×5 (00:14→08:07)
[2018-05-17] MEDS: OXYCODONE/ACETAMINOPHEN 10-325 TAB PO PRN ×3 (00:15→11:43)
[2018-05-17] MEDS: LORazepam 0.25 MG/0.5 ML VIAL IV PRN ×5 (00:47→16:11)
[2018-05-17] MEDS: LIDOCAINE 5% 1 PATCH TD SCH ×2 (05:37→11:45)
[2018-05-17] MEDS: CHECK FENTANYL PATCH PLACEMENT SCH ×6 (07:53→23:16)
[2018-05-17] MEDS: COMBIGAN~ORDER AWAITING ACTION SCH ×2 (07:54→16:12)
[2018-05-17] MEDS ORDERED: HEPARIN 100 UNIT/ML 5ML FLUSH ONE (08:06)
[2018-05-17] MEDS: DOCUSATE SODIUM/SENNA 50/8.6MG TAB PO SCH (08:08)
--- NOTE | 2018-05-17 10:36 | Palliative Care Consultation ---
Date of Consultation May 17, 2018 Assessment & Plan (1) Palliative care encounter: -73 year old male with PMH bladder cancer with mets to pelvis and bone, s/ p ureteroileal conduit on home hospice who presented with uncontrolled pelvic and right leg pain x 4 days. Patient has been on home hospice, was taking Roxanol and oxycodone with no relief. Was taking oxycodone 5-10mg every 4 hours and the patient stopped taking the Roxanol because it was ineffective. Patient had fentanyl patch increased at home from 12mcg/hr to 25mcg/hr. He came to the ED on 05/15 for intractable pain, he was admitted under obs, fentanyl patch increased to 50mcg, oxycodone 10mg Q4h PRN ordered. He was discharged home the next morning but unfortunately had to come in less than 12 hours later due to persistent intractable pain. He is admitted under obs for pain control, palliative care consulted. -Met with patient, his Emily, two daughters Esmer and Maribell, Maribell's Davonte, case management rn Gayathri. Patient is awake, alert and oriented but does have some forgetfulness and fogginess. He cannot give detailed history but only knows that his pelvic pain and right leg pain have been persistent and severe 10+/10 for days. He has had great relief of pain since admission and administration of IV Dilaudid. He still rates his pain at 10/10 but states it is "better" and he appears comfortable and able to rest. -Has received 5 doses of 1mg IV Dilaudid in last 8 hours, had 2.5 more mg IV Dilaudid in ED. -Will discontinue current Dialudid order and start Dilaudid PROFESSOR OF GENETICS: 0.5mg continuous basal rate, and 0.25mg Q30min PROFESSOR OF GENETICS incremental dose. -Is on Senna daily, will add Miralax 1pck daily PRN constipation. -No N/V at this time. -Does have periods of anxiety, will order lorazepam 0.5mg PO/SL Q4h PRN anxiety/ agitation. -Patient and family would still like to take him home on hospice once his pain is controlled. Case management is following to coordinate with hospice. We will plan for now to send patient home with PROFESSOR OF GENETICS pump. (2) Cancer-related pain: (3) Bladder cancer metastasized to bone: History of Present Illness Reason for Consultation: Pain management, hospice Attending Physician: Malgorzata Winters MD History of Present Illness This 73 year old male with PMH bladder cancer with mets to pelvis and bone, s/p ureteroileal conduit on home hospice who presented with uncontrolled pelvic and right leg pain x 4 days. Patient has been on home hospice, was taking Roxanol and oxycodone with no relief. Was taking oxycodone 5-10mg every 4 hours and the patient stopped taking the Roxanol because it was ineffective. Patient had fentanyl patch increased at home from 12mcg/hr to 25mcg/hr. He came to the ED on 05/15 for intractable pain, he was admitted under obs, fentanyl patch increased to 50mcg, oxycodone 10mg Q4h PRN ordered. He was discharged home the next morning but unfortunately had to come in less than 12 hours later due to persistent intractable pain. He is admitted under obs for pain control, palliative care consulted. Thank you kindly for this consult. I will follow. Allergies Allergy/AdvReac Type Severity Reaction Status Date / Time Cipro Allergy Unknown tendonitis Unverified 07/09/15 13:36 ciprofloxacin Allergy Unknown tendonitis Verified 05/15/18 12:24 midazolam Allergy Unknown depression Verified 05/15/18 12:24 Home Medications Home Medications Medication Instructions Recorded Confirmed Type Gas And Bloat Prevention 1 tab PO DAILY PRN 05/15/18 05/16/18 History brimonidine-timolol [Combigan] 1 drp OPR BID 05/15/18 05/16/18 History lorazepam [Ativan] 0.5 - 1 mg PO Q8 PRN 05/15/18 05/16/18 History prednisolone acetate [Pred Forte] 1 drp OPR QPM 05/15/18 05/16/18 History sennosides-docusate sodium 1 tab PO DAILY 05/15/18 05/16/18 History [Senna-S] tramadol 50 - 100 mg PO Q6H PRN 05/15/18 05/16/18 History zolpidem [Ambien] 10 mg PO HS 05/15/18 05/16/18 History Morphine Susp 1 dose PO UD PRN 05/16/18 05/16/18 History fentanyl 50 mcg TRANSDERMAL Q3D@1500 #10 ea 05/16/18 05/16/18 Rx oxycodone 10 mg PO Q4H PRN #60 tab 05/16/18 05/16/18 Rx simethicone [Gas Relief] 0 mg PO BID PRN 05/16/18 05/16/18 History Patient History Medical History Anxiety (Chronic) Chronic rhinitis (Chronic) GERD (gastroesophageal reflux disease) (Chronic) Hiatal hernia (Chronic) Tinnitus (Chronic) 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 Astigmatism of right eye due to surgery (Resolved) Surgical correction BPH (benign prostatic hyperplasia) (Resolved) Bladder neck contracture (Resolved) Surgery to relieve bladder neck contracture 02/08/14 Surgical History History of ileal conduit (Chronic) Radical cystoprostatectomy with ureteroileal conduit 03/12/16 H/O adenoidectomy (Resolved) H/O colonoscopy with polypectomy (Resolved) H/O cystoscopy (Resolved) H/O exploratory laparotomy (Resolved) H/O inguinal hernia repair (Resolved) Left H/O total cystectomy (Resolved) With ureteroileal conduit with bilateral pelvic lymphadenectomy 03/12/16 History of cataract surgery (Resolved) Right eye History of esophagogastroduodenoscopy (EGD) (Resolved) History of tonsillectomy (Resolved) Hx of transurethral destruction of bladder lesion (Resolved) 01/15/16 S/P TURP (Resolved) 09/13/11 History of urostomy Hx of prostatectomy Hx of total cystectomy Family History Other No significant family history Social History marital status: Current Living Situation: Spouse and Family current occupational status: retired 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 Other Information That Helps Us Care for You: No Feels Safe at Home: Yes Safety Concerns: Feels Safe At This Time Smoking Status: Never smoker Do You Dip or Chew Tobacco: No Second Hand Exposure: No Tobacco Cessation Education Requested by Patient: No Hx Alcohol Use: No Hx Substance Use: No Beliefs That Will Affect Care: None Preferred Language: Paraguayan Communication Ability: Effective Food Trades Assistants Required: No caffeine: Yes (2 liter daily;) during the past year weight has: remained stable Review of Systems Constitutional: + weakness; no fever and no chills Ear, Nose, Mouth, Throat: no dysphagia Respiratory: no cough and no dyspnea Cardiovascular: no chest pain and no edema Gastrointestinal: + abdominal pain; no nausea and no vomiting Neurologic: no loss of sensation, no tingling and no confusion Psychiatric: + anxiety Physical Exam 2 Vital Signs (Past 24 Hours): Last Vital Signs Temp 36.9 C 05/16/18 23:00 Pulse 60 05/16/18 23:00 Resp 16 05/16/18 23:00 BP 149/80 H 05/16/18 23:00 Pulse Ox 97 05/16/18 23:00 Constitutional: well developed and well nourished; no acute distress ENMT: Ears: no hearing impairment Neck: normal visual inspection and trachea midline Respiratory: normal respiratory effort, lungs clear to auscultation Cardiovascular: Rate/Rhythm: regular rate and regular rhythm Heart Sounds: normal S1 and normal S2 Vessels: dorsalis pedis pulses present; no JVD Extremities: no edema Gastrointestinal (Abdomen): Inspection/Auscultation: normal bowel sounds; + abdomen abnormal to inspection (ileoconduit present) Percussion/Palpation: + abdomen tender and abdomen soft Skin: no rashes, warm and dry Neurologic: awake; not confused Psychiatric: Orientation: alert and oriented x 3 (some forgetfulness) Affect: + tearful affect
[2018-05-17] MEDS ORDERED: NALOXONE HCL 0.4 MG/1 ML VIAL/CARP IV PRN (10:44)
[2018-05-17] MEDS: HYDROmorphone HCL 0.5MG/ML 50 ML CASSETTE IV PRN (11:31)
[2018-05-17] MEDS: SODIUM CHLORIDE 0.9% 1000ML 1,000 ML IV SCH (11:40)
[2018-05-17 14:35] VITALS: TEMP 97.7
[2018-05-17 14:37] VITALS: O2SAT 98
[2018-05-17] MEDS ORDERED: LORazepam 0.25 MG/0.5 ML VIAL IV PRN (16:24)
--- NOTE | 2018-05-17 16:51 | Hospitalist Progress Note ---
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 Was admitted from home for pain control 05/17 The patient was seen and examined in medical floor His pain seems to be under control but complains today of a lot of anxiety Denies any other significant symptoms Physical Exam 2 Vital Signs (Past 24 Hours): Last Vital Signs Temp 36.5 C 05/17/18 15:00 Pulse 54 L 05/17/18 15:00 Resp 19 05/17/18 15:00 BP 134/70 05/17/18 15:00 Pulse Ox 98 05/17/18 15:00 Physical Exam: No apparent distress at rest Constitutional: WD/WN, vitals as above Eyes: PERRL, conjunctivae normal, anicteric sclerae ENMT: external ear and nose normal, oropharynx normal Neck: trachea midline, no thyromegaly Respiratory: normal respiratory effort; no respiratory distress, no labored breathing and does not use accessory muscles Cardiovascular: Rate/Rhythm: regular rate and regular rhythm Heart Sounds: normal S1 and normal S2 Gastrointestinal (Abdomen): Inspection/Auscultation: abdomen normal to inspection and normal bowel sounds Emerson conduit site is normal Neurologic: Alert, awake and oriented times. Generally weak Results & Data Medications Administered Current Inpatient Medications Acetaminophen (Tylenol) 650 mg PO Q4H PRN PRN Reason: pain/fever Stop: 06/15/18 22:25 Fentanyl (Duragesic) 12 mcg TD Q3D [facility] Stop: 06/01/18 14:59 Fentanyl (Duragesic) 50 mcg TD Q3D [facility] Stop: 06/01/18 14:59 Hydromorphone HCl (Dilaudid Senior Lead Software Engineer) 25 mg IV PRN PRN; Protocol PRN Reason: Pain or SOB Stop: 05/31/18 10:27 Last Admin: 05/17/18 11:31 Dose: 25 mg Sodium Chloride (Nss 1000ml) 1,000 mls @ 15 mls/hr IV .Q24H [facility] Stop: 05/31/18 10:44 Last Admin: 05/17/18 11:40 Dose: 15 mls/hr Lorazepam (Ativan) 0.5 mg in 1 mls @ 0.5 mls/min IV Q2H PRN PRN Reason: Anxiety/Agitation Stop: 06/16/18 16:24 Lidocaine (Lidoderm 5%) 1 patch TD QAM [facility] Stop: 06/16/18 04:29 Last Admin: 05/17/18 11:45 Dose: 1 patch Miscellaneous (Order Awaiting Action) 1 ea N/A QS [facility] Stop: 06/16/18 00:00 Last Admin: 05/17/18 16:12 Dose: Not Given Miscellaneous (Fentanyl Patch Remove & Waste) 1 ea N/A Q72H [facility] Stop: 06/17/18 14:58 Miscellaneous (Fentanyl Patch Check Placement) 1 ea N/A QS [facility] Stop: 06/16/18 00:00 Last Admin: 05/17/18 16:12 Dose: 1 ea Miscellaneous (Fentanyl Patch Remove & Waste) 1 ea N/A Q72H [facility] Stop: 06/17/18 14:58 Miscellaneous (Fentanyl Patch Check Placement) 1 ea N/A QS [facility] Stop: 06/16/18 00:00 Last Admin: 05/17/18 16:12 Dose: 1 ea Miscellaneous (Remove Lidoderm Patch) 1 ea N/A DAILY@2100 [facility] Stop: 06/16/18 20:59 Naloxone HCl (Narcan) 0.1 mg IV Q5M PRN; Protocol PRN Reason: Oversedation/Resp Depression Stop: 05/31/18 10:43 Oxycodone/Acetaminophen (Percocet 10/325mg) 1 tab PO Q4H PRN PRN Reason: Pain Stop: 05/30/18 22:52 Last Admin: 05/17/18 09:51 Dose: 1 tab Polyethylene Glycol (Miralax Powder Packet) 17 gm PO DAILY PRN PRN Reason: Constipation Stop: 06/16/18 10:38 Prednisolone Acetate (Pred Forte 1%) 1 drops OPR QPM [facility] Stop: 06/16/18 20:59 Senna/Docusate Sodium (Senokot S) 1 tab PO DAILY [facility] Stop: 06/16/18 08:59 Last Admin: 05/17/18 08:08 Dose: 1 tab Zolpidem Tartrate (Ambien) 10 mg PO HS [facility] Stop: 06/16/18 20:59
[2018-05-17] MEDS: LORazepam 0.5 MG/1 ML VIAL IV PRN ×2 (18:07→21:12)
[2018-05-17] MEDS ORDERED: ZOLPIDEM TARTRATE 10 MG TAB PO ONE (19:52)
[2018-05-17] MEDS: ZOLPIDEM TARTRATE 10 MG TAB PO SCH (19:54)
[2018-05-17] MEDS: prednisoLONE acetate 1% OP SUSP 5 ML BTL OPR SCH (19:55)
[2018-05-18] MEDS: LORazepam 0.5 MG/1 ML VIAL IV PRN ×6 (05:40→19:31)
[2018-05-18] MEDS: DOCUSATE SODIUM/SENNA 50/8.6MG TAB PO SCH (08:01)
[2018-05-18] MEDS: LIDOCAINE 5% 1 PATCH TD SCH ×2 (08:01→08:03)
[2018-05-18] MEDS: CHECK FENTANYL PATCH PLACEMENT SCH ×4 (08:01→17:08)
[2018-05-18] MEDS: BRIMONIDINE TARTRATE/TIMOLOL OPR SCH ×2 (08:02→21:02)
[2018-05-18] MEDS: OXYCODONE/ACETAMINOPHEN 10-325 TAB PO PRN (11:49)
[2018-05-18] MEDS: fentaNYL 50 MCG/HR TDSY TD SCH (14:36)
[2018-05-18] MEDS: SODIUM CHLORIDE 0.9% 1000ML 1,000 ML IV SCH (14:37)
[2018-05-18] MEDS: fentaNYL 12 MCG/HR TDSY TD SCH (14:37)
--- NOTE | 2018-05-18 15:36 | Palliative Care Progress Note ---
Date of Service May 18, 2018 Assessment & Plan (1) Palliative care encounter: -Plan is for patient to return home on hospice tomorrow. -Continue Dilaudid TABLEAU LEAD pump at 0.5mg/hr basal rate with incremental dose of 0.25mg every 30min as needed for breakthrough pain. -No N/V. -Had some loose stools today and did not take Senna. Reiterated importance of keeping with bowel movements daily and avoid opioid-related constipation. -Case management coordinating home hospice and TABLEAU LEAD pump set-up at home. (2) Cancer-related pain: (3) Bladder cancer metastasized to bone: Subjective Patient is a little more drowsy today. Pain is "so much better," although patient still rated his pain 9/10. His at bedsides states he is more confused and "foggy today." The patient and agreed that they are happy with his current pain level. Patient and family comfortable with his current pain level. Respiratory: no cough and no dyspnea Cardiovascular: no chest pain and no edema Gastrointestinal: + abdominal pain (pelvic pain); no nausea and no vomiting right leg pain Neurologic: + confusion (reported by family) Physical Exam 2 Vital Signs (Past 24 Hours): Last Vital Signs Temp 36.5 C 05/17/18 15:00 Pulse 54 L 05/17/18 15:00 Resp 19 05/17/18 15:00 BP 134/70 05/17/18 15:00 Pulse Ox 98 05/17/18 15:00 Constitutional: well developed and well nourished; no acute distress ENMT: Ears: no hearing impairment Neck: normal visual inspection and trachea midline Respiratory: normal respiratory effort, lungs clear to auscultation Cardiovascular: Rate/Rhythm: regular rate and regular rhythm Heart Sounds: normal S1 and normal S2 Vessels: dorsalis pedis pulses present; no JVD Extremities: no edema Gastrointestinal (Abdomen): Inspection/Auscultation: normal bowel sounds; + abdomen abnormal to inspection (ileoconduit present) Percussion/Palpation: + abdomen tender and abdomen soft Skin: no rashes, warm and dry Neurologic: awake Psychiatric: Orientation: oriented x 3 (some forgetfulness) Affect: + tearful affect Time Spent Midlevel 35 minutes with >50% of time spent at bedside with patient and family discussing plan of care and pain management.
[2018-05-18] MEDS: HYDROmorphone HCL 0.5MG/ML 50 ML CASSETTE IV PRN (16:41)
--- NOTE | 2018-05-18 18:08 | Hospitalist Progress Note ---
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 Increase the dose of Ativan for anxiety relief Comfort measures Discussed with the radiation oncology-no more radiation treatment now Social service RE discharge planning (Patient/family requesting for home hospice services with IV analgesia capability.) Pain is controlled with Dilaudid CHILD WELFARE DIRECTOR and fentanyl patch Has been on Ativan as needed for anxiety Will try Ambien 5 mg tonight for sleeping Likely discharge tomorrow with home hospice and Dilaudid CHILD WELFARE DIRECTOR DNR Subjective Medical history significant for recurrent bladder cancer with bone metastases status post surgery and chemoradiation, chronic pain on Fentanyl patch, BPH, hyperlipidemia as per records, chronic anemia (baseline hemoglobin 12). Was admitted from home for pain control 05/17 The patient was seen and examined in medical floor His pain seems to be under control but complains today of a lot of anxiety Denies any other significant symptoms 05/18 The patient was seen and examined in medical floor His pain is reasonably controlled Still has anxiety Wants to have a sleeping pill at night Physical Exam 2 Vital Signs (Past 24 Hours): Last Vital Signs Temp 36.5 C 05/17/18 15:00 Pulse 54 L 05/17/18 15:00 Resp 19 05/17/18 15:00 BP 134/70 05/17/18 15:00 Pulse Ox 98 05/17/18 15:00 Constitutional: WD/WN, vitals as above Eyes: PERRL, conjunctivae normal, anicteric sclerae ENMT: external ear and nose normal, oropharynx normal Neck: trachea midline, no thyromegaly Respiratory: normal respiratory effort; no respiratory distress, no labored breathing and does not use accessory muscles Cardiovascular: Rate/Rhythm: regular rate and regular rhythm Heart Sounds: normal S1 and normal S2 Gastrointestinal (Abdomen): Inspection/Auscultation: abdomen normal to inspection and normal bowel sounds Results & Data Medications Administered Current Inpatient Medications Acetaminophen (Tylenol) 650 mg PO Q4H PRN PRN Reason: pain/fever Stop: 06/15/18 22:25 Brimonidine/Timolol (Combigan) 1 drops OPR BID [facility] Stop: 06/17/18 08:59 Last Admin: 05/18/18 08:02 Dose: 1 drops Fentanyl (Duragesic) 12 mcg TD Q3D [facility] Stop: 06/01/18 14:59 Last Admin: 05/18/18 14:37 Dose: 12 mcg Fentanyl (Duragesic) 50 mcg TD Q3D [facility] Stop: 06/01/18 14:59 Last Admin: 05/18/18 14:36 Dose: 50 mcg Hydromorphone HCl (Dilaudid Welt Maker) 25 mg IV PRN PRN; Protocol PRN Reason: Pain or SOB Stop: 05/31/18 10:27 Last Admin: 05/18/18 16:41 Dose: 25 mg Sodium Chloride (Nss 1000ml) 1,000 mls @ 15 mls/hr IV .Q24H [facility] Stop: 05/31/18 10:44 Last Admin: 05/18/18 14:37 Dose: 15 mls/hr Lorazepam (Ativan) 0.5 mg in 1 mls @ 0.5 mls/min IV Q2H PRN PRN Reason: Anxiety/Agitation Stop: 06/16/18 16:24 Last Admin: 05/18/18 17:08 Dose: 0.5 mls/min Lidocaine (Lidoderm 5%) 1 patch TD QAM [facility] Stop: 06/16/18 04:29 Last Admin: 05/18/18 08:03 Dose: Not Given Miscellaneous (Fentanyl Patch Remove & Waste) 1 ea N/A Q72H [facility] Stop: 06/17/18 14:58 Last Admin: 05/18/18 14:37 Dose: 1 ea Miscellaneous (Fentanyl Patch Check Placement) 1 ea N/A QS [facility] Stop: 06/16/18 00:00 Last Admin: 05/18/18 17:07 Dose: 1 ea Miscellaneous (Fentanyl Patch Remove & Waste) 1 ea N/A Q72H [facility] Stop: 06/17/18 14:58 Last Admin: 05/18/18 14:37 Dose: 1 ea Miscellaneous (Fentanyl Patch Check Placement) 1 ea N/A QS [facility] Stop: 06/16/18 00:00 Last Admin: 05/18/18 17:08 Dose: 1 ea Miscellaneous (Remove Lidoderm Patch) 1 ea N/A DAILY@2100 [facility] Stop: 06/16/18 20:59 Last Admin: 05/17/18 19:56 Dose: 1 ea Naloxone HCl (Narcan) 0.1 mg IV Q5M PRN; Protocol PRN Reason: Oversedation/Resp Depression Stop: 05/31/18 10:43 Oxycodone/Acetaminophen (Percocet 10/325mg) 1 tab PO Q4H PRN PRN Reason: Pain Stop: 05/30/18 22:52 Last Admin: 05/18/18 11:49 Dose: 1 tab Polyethylene Glycol (Miralax Powder Packet) 17 gm PO DAILY PRN PRN Reason: Constipation Stop: 06/16/18 10:38 Prednisolone Acetate (Pred Forte 1%) 1 drops OPR QPM [facility] Stop: 06/16/18 20:59 Last Admin: 05/17/18 19:55 Dose: 1 drops Senna/Docusate Sodium (Senokot S) 1 tab PO DAILY [facility] Stop: 06/16/18 08:59 Last Admin: 05/18/18 08:01 Dose: Not Given Zolpidem Tartrate (Ambien) 10 mg PO HS [facility] Stop: 06/16/18 20:59 Last Admin: 05/17/18 19:54 Dose: 10 mg
[2018-05-18] MEDS ORDERED: ZOLPIDEM TARTRATE 5 MG TAB PO PRN (18:09)
[2018-05-18] MEDS: ZOLPIDEM TARTRATE 10 MG TAB PO SCH (21:01)
[2018-05-18] MEDS: prednisoLONE acetate 1% OP SUSP 5 ML BTL OPR SCH (21:03)
[2018-05-19] MEDS: CHECK FENTANYL PATCH PLACEMENT SCH ×6 (04:26→15:48)
[2018-05-19] MEDS: OXYCODONE/ACETAMINOPHEN 10-325 TAB PO PRN (04:29)
[2018-05-19] MEDS: LORazepam 0.5 MG/1 ML VIAL IV PRN ×6 (08:13→20:04)
[2018-05-19] MEDS: BRIMONIDINE TARTRATE/TIMOLOL OPR SCH ×2 (08:15→20:37)
[2018-05-19] MEDS: LIDOCAINE 5% 1 PATCH TD SCH (08:16)
[2018-05-19] MEDS: DOCUSATE SODIUM/SENNA 50/8.6MG TAB PO SCH ×2 (08:16→12:52)
--- NOTE | 2018-05-19 10:15 | Palliative Care Progress Note ---
Date of Service May 19, 2018 Assessment & Plan (1) Palliative care encounter: -Patient is more alert and oriented today. His pain is 9/10 in abdomen and right leg. The Dilaudid is still effective, but still not quite where he wants his pain level to be. -Patient used 14.42mg Dilaudid in last 24 hours (12mg from continuous rate of 0.5mg/hr and 9 incremental doses of 0.25mg). He also required a PRN dose of oxycodone 10mg. -Increase Dilaudid PREPRINT ANALYST pump to 0.75mg/hr basal rate with incremental dose of 0.25mg every 20min as needed for breakthrough pain. -No N/V. -Patient and family now state that they want to change to different hospice agency. Daughter requested [facility]. I reiterated that everything was set up for patient to go home today and this would likely delay discharge until Tuesday. Patient and family verbalized understanding and would like to go through with switching hospice agencies. -Family had many questions about end of life process and prognosis. All questions answered. -Case management coordinating home hospice and PREPRINT ANALYST pump set-up at home. I appreciate their efforts and assistance with this. (2) Cancer-related pain: (3) Bladder cancer metastasized to bone: Subjective Patient more awake and alert today. Pain is still 9/10. See A&P for plan of care. , daughter and BOONE at bedside. Constitutional: + weakness; no fever and no chills Gastrointestinal: + abdominal pain (pelvic pain); no nausea and no vomiting Neurologic: + confusion (reported by family) Psychiatric: + anxiety Physical Exam Vital Signs (Past 24 Hours): Last Vital Signs Temp 36.5 C 05/17/18 15:00 Pulse 54 L 05/17/18 15:00 Resp 19 05/17/18 15:00 BP 134/70 05/17/18 15:00 Pulse Ox 98 05/17/18 15:00 Constitutional: well developed and well nourished; no acute distress ENMT: Ears: no hearing impairment Neck: normal visual inspection and trachea midline Respiratory: normal respiratory effort, lungs clear to auscultation Cardiovascular: Rate/Rhythm: regular rate and regular rhythm Heart Sounds: normal S1 and normal S2 Vessels: dorsalis pedis pulses present; no JVD Extremities: no edema Gastrointestinal (Abdomen): Inspection/Auscultation: normal bowel sounds; + abdomen abnormal to inspection (ileoconduit present) Percussion/Palpation: + abdomen tender and abdomen soft Skin: no rashes, warm and dry Neurologic: awake Psychiatric: Orientation: alert and oriented x 3 (some forgetfulness) Affect: + tearful affect Time Spent Midlevel 35 minutes with >50% of time spent at bedside with patient and family discussing pain management, POC, and EOL issues.
[2018-05-19] MEDS: SODIUM CHLORIDE 0.9% 1000ML 1,000 ML IV SCH (10:47)
[2018-05-19] MEDS: HYDROmorphone HCL 0.5MG/ML 50 ML CASSETTE IV PRN ×3 (10:57→17:29)
[2018-05-19] MEDS ORDERED: HYDROmorphone HCL 0.5MG/ML 50 ML CASSETTE IV PRN (11:04)
--- NOTE | 2018-05-19 18:42 | Hospitalist Progress Note ---
Date of Service May 19, 2018 Assessment & Plan (1) Cancer-related pain: Recurrent bladder cancer with bone metastases status post surgery and chemoradiation Uncontrolled pain at home on the hospice care Appreciate palliative care input and recommendation Has been put on Dilaudid HEAD INSPECTOR AND CENTER MARKER Increase the dose of Ativan for anxiety relief Comfort measures Discussed with the radiation oncology-no more radiation treatment now Social service RE discharge planning (Patient/family requesting for home hospice services with IV analgesia capability.) Pain is controlled with Dilaudid HEAD INSPECTOR AND CENTER MARKER and fentanyl patch Has been on Ativan as needed for anxiety Will try Ambien 5 mg tonight for sleeping Has had a good night sleep last night Medically stable with controlled pain Appreciate palliative input and recommendation Likely be discharged on Tuesday with home hospice DNR Subjective Medical history significant for recurrent bladder cancer with bone metastases status post surgery and chemoradiation, chronic pain on Fentanyl patch, BPH, hyperlipidemia as per records, chronic anemia (baseline hemoglobin 12). Was admitted from home for pain control 05/17 The patient was seen and examined in medical floor His pain seems to be under control but complains today of a lot of anxiety Denies any other significant symptoms 05/18 The patient was seen and examined in medical floor His pain is reasonably controlled Still has anxiety Wants to have a sleeping pill at night 05/19 Remains stable and the pain is controlled Waiting to be discharged on Tuesday Physical Exam 2 Vital Signs (Past 24 Hours): Last Vital Signs Temp 36.5 C 05/17/18 15:00 Pulse 54 L 05/17/18 15:00 Resp 19 05/17/18 15:00 BP 134/70 05/17/18 15:00 Pulse Ox 98 05/17/18 15:00 Constitutional: WD/WN, vitals as above Eyes: PERRL, conjunctivae normal, anicteric sclerae ENMT: external ear and nose normal, oropharynx normal Neck: trachea midline, no thyromegaly Respiratory: normal respiratory effort; no respiratory distress, no labored breathing and does not use accessory muscles Cardiovascular: Rate/Rhythm: regular rate and regular rhythm Heart Sounds: normal S1 and normal S2 Gastrointestinal (Abdomen): Inspection/Auscultation: abdomen normal to inspection and normal bowel sounds Neurologic: Pleasantly confused. Generally weak and lethargy Results & Data Medications Administered Current Inpatient Medications Acetaminophen (Tylenol) 650 mg PO Q4H PRN PRN Reason: pain/fever Stop: 06/15/18 22:25 Brimonidine/Timolol (Combigan) 1 drops OPR BID [facility] Stop: 06/17/18 08:59 Last Admin: 05/19/18 08:15 Dose: 1 drops Fentanyl (Duragesic) 12 mcg TD Q3D KEVIN Stop: 06/01/18 14:59 Last Admin: 05/18/18 14:37 Dose: 12 mcg Fentanyl (Duragesic) 50 mcg TD Q3D [facility] Stop: 06/01/18 14:59 Last Admin: 05/18/18 14:36 Dose: 50 mcg Hydromorphone HCl (Dilaudid Knot Picker Cloth) 25 mg IV PRN PRN; Protocol PRN Reason: Pain or SOB Stop: 05/31/18 10:27 Last Admin: 05/19/18 17:29 Dose: 25 mg Sodium Chloride (Nss 1000ml) 1,000 mls @ 15 mls/hr IV .Q24H [facility] Stop: 05/31/18 10:44 Last Admin: 05/19/18 10:47 Dose: 30 mls/hr Lorazepam (Ativan) 0.5 mg in 1 mls @ 0.5 mls/min IV Q2H PRN PRN Reason: Anxiety/Agitation Stop: 06/16/18 16:24 Last Admin: 05/19/18 18:03 Dose: 0.5 mls/min Lidocaine (Lidoderm 5%) 1 patch TD QAM [facility] Stop: 06/16/18 04:29 Last Admin: 05/19/18 08:16 Dose: 1 patch Miscellaneous (Fentanyl Patch Remove & Waste) 1 ea N/A Q72H [facility] Stop: 06/17/18 14:58 Last Admin: 05/18/18 14:37 Dose: 1 ea Miscellaneous (Fentanyl Patch Check Placement) 1 ea N/A QS [facility] Stop: 06/16/18 00:00 Last Admin: 05/19/18 15:48 Dose: 1 ea Miscellaneous (Fentanyl Patch Remove & Waste) 1 ea N/A Q72H [facility] Stop: 06/17/18 14:58 Last Admin: 05/18/18 14:37 Dose: 1 ea Miscellaneous (Fentanyl Patch Check Placement) 1 ea N/A QS [facility] Stop: 06/16/18 00:00 Last Admin: 05/19/18 15:48 Dose: 1 ea Miscellaneous (Remove Lidoderm Patch) 1 ea N/A DAILY@2100 KEVIN Stop: 06/16/18 20:59 Last Admin: 05/18/18 21:04 Dose: Not Given Naloxone HCl (Narcan) 0.1 mg IV Q5M PRN; Protocol PRN Reason: Oversedation/Resp Depression Stop: 05/31/18 10:43 Oxycodone/Acetaminophen (Percocet 10/325mg) 1 tab PO Q4H PRN PRN Reason: Pain Stop: 05/30/18 22:52 Last Admin: 05/19/18 04:29 Dose: 1 tab Polyethylene Glycol (Miralax Powder Packet) 17 gm PO DAILY PRN PRN Reason: Constipation Stop: 06/16/18 10:38 Prednisolone Acetate (Pred Forte 1%) 1 drops OPR QPM KEVIN Stop: 06/16/18 20:59 Last Admin: 05/18/18 21:03 Dose: Not Given Senna/Docusate Sodium (Senokot S) 1 tab PO DAILY KEVIN Stop: 06/16/18 08:59 Last Admin: 05/19/18 12:52 Dose: 1 tab Zolpidem Tartrate (Ambien) 10 mg PO HS KEVIN Stop: 06/16/18 20:59 Last Admin: 05/18/18 21:01 Dose: 10 mg Zolpidem Tartrate (Ambien) 5 mg PO HS PRN PRN Reason: Sleep Stop: 06/17/18 18:08
[2018-05-19] MEDS: ZOLPIDEM TARTRATE 10 MG TAB PO SCH (20:35)
[2018-05-19] MEDS: prednisoLONE acetate 1% OP SUSP 5 ML BTL OPR SCH (20:36)
[2018-05-20] MEDS: CHECK FENTANYL PATCH PLACEMENT SCH ×6 (00:47→16:05)
[2018-05-20] MEDS: LIDOCAINE 5% 1 PATCH TD SCH (08:00)
[2018-05-20] MEDS: DOCUSATE SODIUM/SENNA 50/8.6MG TAB PO SCH (08:02)
[2018-05-20] MEDS: BRIMONIDINE TARTRATE/TIMOLOL OPR SCH ×2 (08:03→20:02)
[2018-05-20] MEDS: LORazepam 0.5 MG/1 ML VIAL IV PRN ×5 (08:38→20:40)
[2018-05-20] MEDS: SODIUM CHLORIDE 0.9% 1000ML 1,000 ML IV SCH (11:56)
--- NOTE | 2018-05-20 17:27 | Hospitalist Progress Note ---
Date of Service May 20, 2018 Assessment & Plan (1) Cancer-related pain: Recurrent bladder cancer with bone metastases status post surgery and chemoradiation Uncontrolled pain at home on the hospice care Appreciate palliative care input and recommendation Has been put on Dilaudid DOOR TO DOOR SELLING DISTRIBUTOR Increase the dose of Ativan for anxiety relief Comfort measures Discussed with the radiation oncology-no more radiation treatment now Social service RE discharge planning (Patient/family requesting for home hospice services with IV analgesia capability.) Pain is controlled with Dilaudid DOOR TO DOOR SELLING DISTRIBUTOR and fentanyl patch Has been on Ativan as needed for anxiety Will try Ambien 5 mg tonight for sleeping Has had a good night sleep last night Medically stable with controlled pain Appreciate palliative input and recommendation Likely be discharged on Tuesday with home hospice Remains comfortable with appropriate level of pain control Occasional confusion-secondary to pain medications and for cancer itself Discussed with the Likely be discharged on Tuesday with home hospice DNR Subjective Medical history significant for recurrent bladder cancer with bone metastases status post surgery and chemoradiation, chronic pain on Fentanyl patch, BPH, hyperlipidemia as per records, chronic anemia (baseline hemoglobin 12). Was admitted from home for pain control 05/17 The patient was seen and examined in medical floor His pain seems to be under control but complains today of a lot of anxiety Denies any other significant symptoms 05/18 The patient was seen and examined in medical floor His pain is reasonably controlled Still has anxiety Wants to have a sleeping pill at night 05/19 Remains stable and the pain is controlled Waiting to be discharged on Saturday 05/20 Pleasantly confused Remains free from pain Physical Exam 2 Vital Signs (Past 24 Hours): Last Vital Signs Temp 36.5 C 05/17/18 15:00 Pulse 54 L 05/17/18 15:00 Resp 19 05/17/18 15:00 BP 134/70 05/17/18 15:00 Pulse Ox 98 05/17/18 15:00 Constitutional: WD/WN, vitals as above Eyes: PERRL, conjunctivae normal, anicteric sclerae ENMT: external ear and nose normal, oropharynx normal Neck: trachea midline, no thyromegaly Respiratory: normal respiratory effort; no respiratory distress, no labored breathing and does not use accessory muscles Cardiovascular: Rate/Rhythm: regular rate and regular rhythm Heart Sounds: normal S1 and normal S2 Gastrointestinal (Abdomen): Inspection/Auscultation: abdomen normal to inspection and normal bowel sounds
[2018-05-20] MEDS: prednisoLONE acetate 1% OP SUSP 5 ML BTL OPR SCH (20:11)
[2018-05-20] MEDS: ZOLPIDEM TARTRATE 10 MG TAB PO SCH (21:29)
[2018-05-20] MEDS: HYDROmorphone HCL 0.5MG/ML 50 ML CASSETTE IV PRN (23:09)
[2018-05-21] MEDS ORDERED: HEPARIN 100 UNIT/ML 5ML FLUSH FLUSH PRN (00:49)
[2018-05-21] MEDS: CHECK FENTANYL PATCH PLACEMENT SCH ×6 (00:58→15:07)
[2018-05-21] MEDS: LORazepam 0.5 MG/1 ML VIAL IV PRN ×5 (02:14→14:58)
[2018-05-21] MEDS: DOCUSATE SODIUM/SENNA 50/8.6MG TAB PO SCH (09:13)
[2018-05-21] MEDS: BRIMONIDINE TARTRATE/TIMOLOL OPR SCH ×2 (09:14→21:44)
[2018-05-21] MEDS: LIDOCAINE 5% 1 PATCH TD SCH (09:14)
[2018-05-21] MEDS: POLYETHYLENE (MIRALAX) 17 GM PACK PO PRN (09:40)
[2018-05-21] MEDS: HYDROmorphone HCL 0.5MG/ML 50 ML CASSETTE IV PRN (11:32)
[2018-05-21] MEDS: SODIUM CHLORIDE 0.9% 1000ML 1,000 ML IV SCH (12:06)
[2018-05-21] MEDS: fentaNYL 50 MCG/HR TDSY TD SCH (15:00)
[2018-05-21] MEDS: fentaNYL 12 MCG/HR TDSY TD SCH (15:01)
--- NOTE | 2018-05-21 15:08 | Hospitalist Progress Note ---
Date of Service May 21, 2018 Assessment & Plan (1) Cancer-related pain: Recurrent bladder cancer with bone metastases status post surgery and chemoradiation Uncontrolled pain at home on the hospice care Appreciate palliative care input and recommendation Has been put on Dilaudid ROUNDSMAN Increase the dose of Ativan for anxiety relief Comfort measures Discussed with the radiation oncology-no more radiation treatment now Social service RE discharge planning (Patient/family requesting for home hospice services with IV analgesia capability.) Pain is controlled with Dilaudid ROUNDSMAN and fentanyl patch Has been on Ativan as needed for anxiety Will try Ambien 5 mg tonight for sleeping Has had a good night sleep last night Medically stable with controlled pain Appreciate palliative input and recommendation Likely be discharged on Tuesday with home hospice Remains comfortable with appropriate level of pain control Occasional confusion-secondary to pain medications and for cancer itself Discussed with the Likely be discharged on Tuesday with home hospice Has been on comfort care-pain is controlled Discussed with the family members Likely to be discharged tomorrow with home hospice DNR Subjective Medical history significant for recurrent bladder cancer with bone metastases status post surgery and chemoradiation, chronic pain on Fentanyl patch, BPH, hyperlipidemia as per records, chronic anemia (baseline hemoglobin 12). Was admitted from home for pain control 05/17 The patient was seen and examined in medical floor His pain seems to be under control but complains today of a lot of anxiety Denies any other significant symptoms 05/18 The patient was seen and examined in medical floor His pain is reasonably controlled Still has anxiety Wants to have a sleeping pill at night 05/19 Remains stable and the pain is controlled Waiting to be discharged on Saturday 05/20 Pleasantly confused Remains free from pain 05/21 Remains stable with Dilaudid ROUNDSMAN pump Occasional anxiety relieved with intravenous Ativan Physical Exam 2 Vital Signs (Past 24 Hours): Last Vital Signs Temp 36.5 C 05/17/18 15:00 Pulse 54 L 05/17/18 15:00 Resp 19 05/17/18 15:00 BP 134/70 05/17/18 15:00 Pulse Ox 98 05/17/18 15:00 Physical Exam: No apparent distress at rest Constitutional: WD/WN, vitals as above Eyes: PERRL, conjunctivae normal, anicteric sclerae ENMT: external ear and nose normal, oropharynx normal Neck: trachea midline, no thyromegaly Respiratory: normal respiratory effort; no respiratory distress, no labored breathing and does not use accessory muscles Cardiovascular: Rate/Rhythm: regular rate and regular rhythm Heart Sounds: normal S1 and normal S2 Gastrointestinal (Abdomen): Inspection/Auscultation: abdomen normal to inspection and normal bowel sounds Neurologic: Very weak and lethargic with episodes of confusion
[2018-05-21] MEDS ORDERED: Nursing to Pharmacy Communication ONE (16:10)
[2018-05-21] MEDS: LORazepam 0.5 MG/1 ML VIAL IV SCH ×3 (17:04→21:44)
[2018-05-21] MEDS: ZOLPIDEM TARTRATE 10 MG TAB PO SCH (21:44)
[2018-05-21] MEDS: prednisoLONE acetate 1% OP SUSP 5 ML BTL OPR SCH (21:45)
[2018-05-22] MEDS: CHECK FENTANYL PATCH PLACEMENT SCH ×8 (00:06→22:52)
[2018-05-22] MEDS: LORazepam 0.5 MG/1 ML VIAL IV SCH ×5 (01:33→08:38)
[2018-05-22] MEDS: HYDROmorphone HCL 0.5MG/ML 50 ML CASSETTE IV PRN (02:12)
[2018-05-22] MEDS: DOCUSATE SODIUM/SENNA 50/8.6MG TAB PO SCH (08:38)
[2018-05-22] MEDS: BRIMONIDINE TARTRATE/TIMOLOL OPR SCH ×2 (08:39→20:16)
[2018-05-22] MEDS: LIDOCAINE 5% 1 PATCH TD SCH (08:39)
[2018-05-22] MEDS: POLYETHYLENE (MIRALAX) 17 GM PACK PO PRN (08:47)
[2018-05-22] MEDS ORDERED: LORazepam 0.5 MG TAB SL SCH (09:45)
[2018-05-22] MEDS: SODIUM CHLORIDE 0.9% 1000ML 1,000 ML IV SCH ×2 (10:53→20:13)
[2018-05-22] MEDS ORDERED: Nursing to Pharmacy Communication ONE (11:00)
--- NOTE | 2018-05-22 12:28 | Palliative Care Progress Note ---
Date of Service May 22, 2018 Assessment & Plan (1) Palliative care encounter: -Patient used 19.34mg Dilaudid in last 24 hours (12mg from continuous rate of 0.5mg/hr and 9 incremental doses of 0.25mg). He also required a PRN dose of oxycodone 10mg. -Dilaudid WELT TRIMMING MACHINE OPERATOR pump to 0.75mg/hr basal rate with incremental dose of 0.25mg every 20min as needed for breakthrough pain. -Continue fentanyl patch at 62mcg/hr. -No N/V. -Still having some anxiety. Lorazepam working well for patient. He was converted from IV to PO today, 0.5mg sublingually Q2h scheduled. -Uncertain at this point which agency patient is going home with. [address] [place] [address] cannot provide the Dilaudid WELT TRIMMING MACHINE OPERATOR pump. [facility] need to go back to [facility]. -Case management coordinating home hospice and WELT TRIMMING MACHINE OPERATOR pump set-up at home. I appreciate their efforts and assistance with this. (2) Cancer-related pain: (3) Bladder cancer metastasized to bone: Subjective Patient a little more groggy today. He is oriented but does have periods of confusion/forgetfulness. and daughter at bedside. Patient's pain is well-controlled at this time. See A&P. Constitutional: + weakness; no fever and no chills Gastrointestinal: + abdominal pain (pelvic pain); no nausea and no vomiting Neurologic: + confusion (reported by family) Psychiatric: + anxiety Physical Exam Vital Signs (Past 24 Hours): Last Vital Signs Temp 36.5 C 05/17/18 15:00 Pulse 54 L 05/17/18 15:00 Resp 19 05/17/18 15:00 BP 134/70 05/17/18 15:00 Pulse Ox 98 05/17/18 15:00 Constitutional: no acute distress ENMT: Ears: no hearing impairment Neck: normal visual inspection and trachea midline Respiratory: normal respiratory effort, lungs clear to auscultation Cardiovascular: Rate/Rhythm: regular rate and regular rhythm Heart Sounds: normal S1 and normal S2 Vessels: dorsalis pedis pulses present; no JVD Extremities: no edema Gastrointestinal (Abdomen): Inspection/Auscultation: normal bowel sounds; + abdomen abnormal to inspection (ileoconduit present) Percussion/Palpation: + abdomen tender and abdomen soft Skin: no rashes, warm and dry Neurologic: awake Psychiatric: Orientation: oriented x 3 (some forgetfulness) Time Spent Midlevel 35 minutes with >50% of time spent at bedside with patient and family discussing plan and home hospice.
[2018-05-22] MEDS: LORazepam 0.5 MG TAB SL SCH ×6 (12:57→22:51)
--- NOTE | 2018-05-22 15:50 | Hospitalist Progress Note ---
Date of Service May 22, 2018 Assessment & Plan (1) Cancer-related pain: Recurrent bladder cancer with bone metastases status post surgery and chemoradiation Uncontrolled pain at home on the hospice care Appreciate palliative care input and recommendation Has been put on Dilaudid GLASS CLEANING MACHINE TENDER Increase the dose of Ativan for anxiety relief Comfort measures Discussed with the radiation oncology-no more radiation treatment now Social service RE discharge planning (Patient/family requesting for home hospice services with IV analgesia capability.) Pain is controlled with Dilaudid GLASS CLEANING MACHINE TENDER and fentanyl patch Has been on Ativan as needed for anxiety Will try Ambien 5 mg tonight for sleeping Has had a good night sleep last night Medically stable with controlled pain Appreciate palliative input and recommendation Likely be discharged on Tuesday with home hospice Remains comfortable with appropriate level of pain control Occasional confusion-secondary to pain medications and for cancer itself Discussed with the and other family members Has been on comfort care-pain is controlled Remains stable with intravenous Dilaudid GLASS CLEANING MACHINE TENDER pump Appreciate input from palliative care and social service Awaiting to be discharged home with Dilaudid GLASS CLEANING MACHINE TENDER on the hospice care DNR Subjective Medical history significant for recurrent bladder cancer with bone metastases status post surgery and chemoradiation, chronic pain on Fentanyl patch, BPH, hyperlipidemia as per records, chronic anemia (baseline hemoglobin 12). Was admitted from home for pain control 05/17 The patient was seen and examined in medical floor His pain seems to be under control but complains today of a lot of anxiety Denies any other significant symptoms 05/18 The patient was seen and examined in medical floor His pain is reasonably controlled Still has anxiety Wants to have a sleeping pill at night 05/19 Remains stable and the pain is controlled Waiting to be discharged on Saturday 05/20 Pleasantly confused Remains free from pain 05/21 Remains stable with Dilaudid GLASS CLEANING MACHINE TENDER pump Occasional anxiety relieved with intravenous Ativan 05/22 Patient was seen and examined in presence of the family members Remains very lethargic and confused But the pain is controlled without any other symptoms Physical Exam 2 Vital Signs (Past 24 Hours): Last Vital Signs Temp 36.5 C 05/17/18 15:00 Pulse 54 L 05/17/18 15:00 Resp 19 05/17/18 15:00 BP 134/70 05/17/18 15:00 Pulse Ox 98 05/17/18 15:00 Physical Exam: Confused with minimal distress Constitutional: WD/WN, vitals as above Eyes: PERRL, conjunctivae normal, anicteric sclerae ENMT: external ear and nose normal, oropharynx normal Neck: trachea midline, no thyromegaly Respiratory: normal respiratory effort; no respiratory distress, no labored breathing and does not use accessory muscles Auscultation: + diminished lung sounds Cardiovascular: Rate/Rhythm: regular rate and regular rhythm Heart Sounds: normal S1 and normal S2 Gastrointestinal (Abdomen): Inspection/Auscultation: abdomen normal to inspection and normal bowel sounds Percussion/Palpation: + abdomen tender and abdomen soft Neurologic: Generally very weak and lethargic. Pleasantly confused
[2018-05-22] MEDS: prednisoLONE acetate 1% OP SUSP 5 ML BTL OPR SCH (20:16)
[2018-05-22] MEDS: ZOLPIDEM TARTRATE 10 MG TAB PO SCH (20:55)
[2018-05-23] MEDS: LORazepam 0.5 MG TAB SL SCH ×6 (00:54→10:32)
[2018-05-23] MEDS: HYDROmorphone HCL 0.5MG/ML 50 ML CASSETTE IV PRN (05:04)
[2018-05-23] MEDS: CHECK FENTANYL PATCH PLACEMENT SCH ×2 (08:37→08:38)
[2018-05-23] MEDS: BRIMONIDINE TARTRATE/TIMOLOL OPR SCH (08:39)
[2018-05-23] MEDS: DOCUSATE SODIUM/SENNA 50/8.6MG TAB PO SCH (08:40)
[2018-05-23] MEDS: LIDOCAINE 5% 1 PATCH TD SCH (08:40)
--- NOTE | 2018-05-23 10:12 | Hospitalist Progress Note ---
Date of Service May 23, 2018 Assessment & Plan (1) Cancer-related pain: Recurrent bladder cancer with bone metastases status post surgery and chemoradiation Uncontrolled pain at home on the hospice care Appreciate palliative care input and recommendation Has been put on Dilaudid MAINTENANCE SERVICES DISPATCHER Increase the dose of Ativan for anxiety relief Comfort measures Discussed with the radiation oncology-no more radiation treatment now Social service RE discharge planning (Patient/family requesting for home hospice services with IV analgesia capability.) Pain is controlled with Dilaudid MAINTENANCE SERVICES DISPATCHER and fentanyl patch Has been on Ativan as needed for anxiety Will try Ambien 5 mg tonight for sleeping Has had a good night sleep last night Medically stable with controlled pain Appreciate palliative input and recommendation Likely be discharged on Tuesday with home hospice Remains comfortable with appropriate level of pain control Occasional confusion-secondary to pain medications and for cancer itself Discussed with the and other family members Has been on comfort care-pain is controlled Remains stable with intravenous Dilaudid MAINTENANCE SERVICES DISPATCHER pump Appreciate input from palliative care and social service Awaiting to be discharged home with Dilaudid MAINTENANCE SERVICES DISPATCHER on the hospice care He was discharged home with hospice at 10:30 AM on 23 May 2018 in a critical but stable condition. DNR Subjective Medical history significant for recurrent bladder cancer with bone metastases status post surgery and chemoradiation, chronic pain on Fentanyl patch, BPH, hyperlipidemia as per records, chronic anemia (baseline hemoglobin 12). Was admitted from home for pain control 05/17 The patient was seen and examined in medical floor His pain seems to be under control but complains today of a lot of anxiety Denies any other significant symptoms 05/18 The patient was seen and examined in medical floor His pain is reasonably controlled Still has anxiety Wants to have a sleeping pill at night 05/19 Remains stable and the pain is controlled Waiting to be discharged on Saturday 05/20 Pleasantly confused Remains free from pain 05/21 Remains stable with Dilaudid MAINTENANCE SERVICES DISPATCHER pump Occasional anxiety relieved with intravenous Ativan 05/22 Patient was seen and examined in presence of the family members Remains very lethargic and confused But the pain is controlled without any other symptoms 05/23 Patient was seen and examined in the presence of family members this morning He remains free of pain but confused He will be sent home with hospice this morning Physical Exam 2 Vital Signs (Past 24 Hours): Last Vital Signs Temp 36.5 C 05/17/18 15:00 Pulse 54 L 05/17/18 15:00 Resp 19 05/17/18 15:00 BP 134/70 05/17/18 15:00 Pulse Ox 98 05/17/18 15:00 Physical Exam: Minimal distress at rest Constitutional: WD/WN, vitals as above Eyes: PERRL, conjunctivae normal, anicteric sclerae ENMT: external ear and nose normal, oropharynx normal Neck: trachea midline, no thyromegaly Respiratory: normal respiratory effort; no respiratory distress, no labored breathing and does not use accessory muscles Auscultation: + diminished lung sounds Cardiovascular: Rate/Rhythm: regular rate and regular rhythm Heart Sounds: normal S1 and normal S2 Gastrointestinal (Abdomen): Inspection/Auscultation: abdomen normal to inspection and normal bowel sounds Percussion/Palpation: + abdomen tender and abdomen soft Neurologic: Extremely weak and confused
[2018-05-23] MEDS ORDERED: HYDROmorphone INJ 1 MG/ML SYRINGE IV STA (10:25)
[2018-05-23 10:32] VITALS: BP 149/80; PULSE 60
--- NOTE | 2018-05-23 18:14 | Discharge Summary ---
Date of Service May 23, 2018 Admission HPI Per Admitting Provider History obtained from patient, family, and records. Medical history significant for recurrent bladder cancer with bone metastases status post surgery and chemoradiation, chronic pain on Fentanyl patch, BPH, hyperlipidemia as per records, chronic anemia (baseline hemoglobin 12). Recent confinement 05/16-05/16 for worsening right buttock pain. Patient's Fentanyl patch dose increased from 25-50 mcg every 72 hours. Patient discharge yesterday on home hospice. Uncontrolled pelvic pain at home. Good bowel movement. Home hospice nurse unable to give IV analgesics which was not the patient/ family understanding. Patient brought to the emergency room by family. 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 No wheezes, rales or rhonci. No respiratory distress or accessory muscle use Cardiovascular: bradycardic, regular rhythm, no murmur, normal peripheral pulses Abdomen/GI: normal bowel sounds, soft, non-tender to palpation. Ostomy in RLQ, no surrounding erythema. 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 Discharge Exam Constitutional WD/WN, vitals as above Eyes PERRL, conjunctivae normal, anicteric sclerae ENMT external ear and nose normal, oropharynx normal Neck trachea midline, no thyromegaly Respiratory normal respiratory effort; no respiratory distress, no labored breathing and does not use accessory muscles Auscultation: + diminished lung sounds Cardiovascular Rate/Rhythm: regular rate and regular rhythm Heart Sounds: normal S1 and normal S2 Gastrointestinal (Abdomen) Inspection/Auscultation: abdomen normal to inspection and normal bowel sounds Percussion/Palpation: + abdomen tender and abdomen soft Discharge Data Allergies Allergy/AdvReac Type Severity Reaction Status Date / Time Cipro Allergy Unknown tendonitis Unverified 07/09/15 13:36 ciprofloxacin Allergy Unknown tendonitis Verified 05/15/18 12:24 midazolam Allergy Unknown depression Verified 05/15/18 12:24 Consultations 05/16/18 19:41 ED Decision to Admit Stat 05/16/18 22:53 Consult Case Management - Discharge Planning Routine Consult Palliative Care Routine Hospital Course (1) Cancer-related pain: Recurrent bladder cancer with bone metastases status post surgery and chemoradiation Uncontrolled pain at home on the hospice care Appreciate palliative care input and recommendation Has been put on Dilaudid NUT RO[employer] HELPER Increase the dose of Ativan for anxiety relief Comfort measures Discussed with the radiation oncology-no more radiation treatment now Social service RE discharge planning (Patient/family requesting for home hospice services with IV analgesia capability.) Pain is controlled with Dilaudid NUT RO[employer]ER HELPER and fentanyl patch Has been on Ativan as needed for anxiety Will try Ambien 5 mg tonight for sleeping Has had a good night sleep last night Medically stable with controlled pain Appreciate palliative input and recommendation Likely be discharged on Tuesday with home hospice Remains comfortable with appropriate level of pain control Occasional confusion-secondary to pain medications and for cancer itself Discussed with the and other family members Has been on comfort care-pain is controlled Remains stable with intravenous Dilaudid NUT RO[employer] pump Appreciate input from palliative care and social service Awaiting to be discharged home with Dilaudid NUT ROASTER HELPER on the hospice care He was discharged home with hospice at 10:30 AM on 23 May 2018 in a critical but stable condition. DNR Total Time Total Time Spent Total Time Spent (In Minutes): 35 minutes Total Time Includes: Examination of the Patient, Discharge Planning, Medication Reconciliation and Communication With Other Providers Discharge Plan Discharge Items Patient Disposition: Hospice - Home Reason For Visit: UNCONTROLLED CANCER PAIN Discharge Diagnosis: Urinary Bladder cancer with Metastases,Cancer related pain on Dilaudid NUT RO[employer]PER Condition: Critical Discharge Goals: Decrease discomfort Activity: As commented below Activity Comment: Mostly bed bound Non-emergency contact: Primary Care Provider Call non-emergency contact if: you have any medication questions and your symptoms worsen Follow-up/Referrals: Hugh Pagan [Primary Care Provider] - ( Per Hospice care) Diet: Regular Diet Comment: tolerated Addtl Provider Instructions: Please take precaution to avoid fall The prescriptions of Medications were provided yesterday. May not completely match with the discharge medications.Please go by the recommendations from Hospice Prescriptions: New fentanyl 50 mcg/hr Patch 72 Hour 50 mcg Transdermal Q3D 10 Days Qty: 3 RF: 0 oxycodone-acetaminophen 10-325 mg Tablet 1 tab PO Q4H PRN (Reason: pain) 5 Days Qty: 20 RF: 0 lidocaine 5 % Adhesive Patch,Medicated 1 patch Transdermal QAM 10 Days Qty: 10 RF: 0 zolpidem 5 mg Tablet 5 mg PO HS PRN (Reason: insomnia) 10 Days Qty: 10 RF: 0 zolpidem 10 mg Tablet 10 mg PO HS 10 Days Qty: 10 RF: 0 fentanyl 12 mcg/hr Patch 72 Hour 12 mcg Transdermal Q3D 10 Days Qty: 3 RF: 0 hydromorphone (PF) 10 mg/mL Solution 25 mg IV PRN PRN (Reason: pain) 10 Days Qty: 1 RF: 0 Continue sennosides-docusate sodium [Senna-S] 8.6-50 mg Tablet 1 tab PO DAILY RF: 0 tramadol 50 mg Tablet 50 - 100 mg PO Q6H PRN (Reason: Breakthrough Pain) RF: 0 prednisolone acetate [Pred Forte] 1 % Drops,Suspension 1 drp OPR QPM RF: 0 lorazepam [Ativan] 0.5 mg Tablet 0.5 - 1 mg PO Q8 PRN (Reason: Anxiety) RF: 0 zolpidem [Ambien] 10 mg Tablet 10 mg PO HS RF: 0 brimonidine-timolol [Combigan] 0.2-0.5 % Drops 1 drp OPR BID RF: 0 Gas And Bloat Prevention 1 tab PO DAILY PRN (Reason: gas and bloat) RF: 0 fentanyl 50 mcg/hr Patch 72 Hour 50 mcg Transdermal Q3D@1500 Qty: 10 RF: 0 oxycodone 10 mg tablet 10 mg PO Q4H PRN (Reason: pain) Qty: 60 RF: 0 simethicone [Gas Relief] 80 mg Tablet,Chewable PO BID PRN (Reason: GAS/BLOATING) RF: 0 Morphine Susp 1 dose PO UD PRN (Reason: Pain) RF: 0 Stand-Alone Forms: [facility] Discharge Orders: Discharge Order (Routine); Ordered 05/23/18 Ordered By: Malgorzata Winters Admission Data Admit Date/Time: 05/17/18 11:16 Attending Provider: Malgorzata Winters Admit Provider: Jeremy Bobby Primary Care Provider: Hugh Pagan Other Providers: Jeremy Bobby ; Cony Macias Service: Oncology Other Interventions: Discharge Summary Assessment (RN) Last Done: 05/23/18 10:29 DC Date/Time DO NOT enter until pt leaves facility: 05/23/18 10:45
== END 2018-05-23 10:45 | disposition hospice, home (50) | DRG 948 ==
LOC: ED 17:21 → 4E 17:21